=== PATIENT | female | born 1945 | race Caucasian/White ===

== ENCOUNTER 2020-10-05 10:58 | Outpatient (REF) | payer MEDICARE, MEDICAID, SELFPAY ==
--- NOTE | ~2020-10-05 | MR_ITS ---
EXAMINATION: MR LUMBAR SPINE WITHOUT CONTRAST CLINICAL INFORMATION: Spinal stenosis. COMPARISON: None. TECHNIQUE: MRI of the lumbar spine was obtained using routine sequences without contrast. FINDINGS: VERTEBRAL BODIES AND PARASPINAL STRUCTURES: Five lumbar-type vertebral bodies are identified. Focal convex rightward scoliosis of the lumbar spine is present at L4-L5 and is associated with 8 mm lateral subluxation of L3 relative to L4. 3 mm retrolisthesis of L2 relative to L3 is present. 4 mm asymmetrically prominent leftward anterolisthesis of L4 and L5 is present. Multilevel endplate discogenic marrow signal changes are present. No suspicious marrow abnormalities are noted. Scattered foci which may present hemangiomas or regions of focal fat are incidentally visualized within the thoracic and lumbar vertebral bodies. CONUS MEDULLARIS AND CAUDA EQUINA: Normal, terminating at the level of T12-L1. SPINAL LEVELS: T12-L1: Mild central stenosis. Findings arise in the setting of a mild posterior broad-based disc bulge and mild bilateral ligamentum flavum and facet hypertrophy. L1-L2: Mild central stenosis. Mild right foraminal stenosis. Findings arise secondary to a mild posterior broad-based disc bulge with right intraforaminal extension. Additionally, moderate bilateral ligamentum flavum hypertrophy is noted. L2-L3: Mild central stenosis with partial right subarticular recess narrowing and moderate right foraminal stenosis. Findings arise secondary to a mild-moderate posterior broad-based disc bulge with right parasagittal and right intraforaminal eccentricity with approximately 50% right foraminal narrowing. No direct nerve root impingement is noted. Bilateral ligamentum flavum hypertrophy is present at this level. L3-L4: Marked central stenosis. Marked left foraminal stenosis. Moderate right foraminal stenosis. Findings arise secondary to a moderate posterior broad-based disc bulge with an overlying left parasagittal disc extrusion with 7 mm inferior subligamentous extension within the left subarticular recess and left lateral recess of L4. Complete effacement of the adjacent thecal sac CSF space is present. Greater than 75% left foraminal narrowing is present secondary to the intraforaminal component of the disc bulge and adjacent moderate left facet hypertrophic changes. Additionally, marked bilateral ligamentum flavum hypertrophy is present. L4-L5: Moderate left foraminal stenosis. Mild central and mild right foraminal stenoses. Left foraminal stenosis arises secondary to a moderate left intraforaminal disc protrusion in association with moderate left facet hypertrophic changes and moderate left ligamentum flavum hypertrophy. Mild abutment upon the exiting left L4 nerve roots is noted. Concentric narrowing of the thecal sac CSF space is present, predominantly secondary to prominent bilateral ligamentum flavum hypertrophy. The intervertebral disc demonstrates approximately 75% loss of craniocaudal height. L5-S1: No significant central or foraminal stenoses. Normal intervertebral disc height. MR/MR lumbar spine wo con IMPRESSION: 1. Advanced multilevel chronic spondylosis of the lumbar spine. 2. L3-L4 marked central stenosis and left parasagittal disc extrusion with caudal extension effacing the left subarticular recess and left lateral recess with direct left L4 nerve root impingement. 3. L3-L4 marked left foraminal stenosis with left L3 nerve root impingement. 4. L4-L5 moderate left foraminal stenosis with moderate left L4 nerve root impingement. 5. Right lateral subluxation of the L4 vertebral body with focal convex rightward curvature of the lower lumbar spine.
== END 2020-10-05 10:59 | disposition home or self-care (01) ==
LOC: HO.MRI 10:58
PROVIDERS: Visit Provider Internal Medicine
DX: M48.00 Spinal stenosis, site unspecified (principal)
CPT/HCPCS: 72148

== ENCOUNTER 2020-12-10 09:00 | Outpatient (REF) | payer MEDICARE, MEDICAID, SELFPAY ==
--- NOTE | 2020-12-10 09:14 | ECG_ITS ---
Test Reason : Z13.9 Blood Pressure : / mmHG Vent. Rate : 081 BPM Atrial Rate : 081 BPM P-R Int : 256 ms QRS Dur : 074 ms QT Int : 386 ms P-R-T Axes : 100 059 057 degrees QTc Int : 448 ms Sinus rhythm with 1st degree A-V block with Premature ventricular complexes Nonspecific ST and T wave abnormality Abnormal ECG When compared with ECG of 13-FEB-2009 16:02, Premature ventricular complexes is now Present Referred By: Michael Blanchard Electronically Signed By:CADENCE BASSETT MD
[2020-12-10 10:06] LABS: Basophils Absolute Auto 0.1 X10*3/uL (0.0-0.2); Basophils Percent Auto 0.2 % (0-2); Eosinophils Absolute Auto 0.2 X10*3/uL (0.0-0.4); Eosinophils Percent Auto 0.4 % (0-4); Hematocrit 34.5 % (37-47); Hemoglobin 11.1 g/dl (12.0-16.0); Imm Gran Abs Auto 0.06 X10*3/uL (0.00-0.03); Imm Gran Pct Auto 0.2 % (0.0-0.4); Lymphocytes Percent Auto 88.1 % (20-40); MANUAL DIFF FLAG SCAN; Mean Corpuscular HGB Conc 32.2 g/dl (31.0-35.0); Mean Corpuscular Hemoglobin 29.4 pg (27.0-33.0); Mean Corpuscular Volume 91.3 fL (80-98); Mean Platelet Volume 9.6 fL (9.4-12.3); Monocytes Absolute Auto 0.3 X10*3/uL (0.1-1.2); Monocytes Percent Auto 0.8 % (2-11); Neutrophils Absolute Auto 3.8 X10*3/uL (2.0-8.3); Neutrophils Percent Auto 10.3 % (45-73); Platelet Count 142 X10*3/uL (160-400); Red Blood Count 3.78 X10*6/uL (4.20-5.50); Red Cell Distribution Width 12.8 % (11.0-16.0); SCAN SMEAR FLAG 1
[2020-12-10 10:11] LABS: Alanine Aminotransferase 12 U/L (0-31); Albumin Level 4.2 g/dL (3.5-5.0); Alkaline Phosphatase 56 U/L (39-117); Anion Gap 10 (12-20); Aspartate Amino Transferase 17 U/L (5-31); Bilirubin Total 0.6 mg/dL (0.0-1.0); Blood Urea Nitrogen 12 mg/dL (9-16); Calcium 9.5 mg/dL (8.4-10.2); Carbon Dioxide 29 mmol/L (22-29); Chloride 99 mmol/L (96-108); Cholesterol 180 mg/dL; Estimated Glomerular Filt Rate > 60; Glucose Fasting 101 mg/dL (60-99); HDL Cholesterol 72 mg/dL; LDL Cholesterol Calculated 92 mg/dl; Sodium 135 mmol/L (135-145); Total Protein 6.6 g/dL (6.5-8.0); Triglycerides 84 mg/dL
[2020-12-10 10:14] LABS: Lymphocytes Absolute Auto 32.3 X10*3/uL (1.2-4.9)
[2020-12-10 10:15] LABS: White Blood Count 36.6 X10*3/uL (4.8-10.8)
[2020-12-10 10:33] LABS: Thyroid Stimulating Hormone 1.47 uIU/mL (0.32-4.0)
[2020-12-10 10:50] LABS: SLIDE REVIEW VERIFIED
== END 2020-12-10 09:01 | disposition home or self-care (01) ==
LOC: HO.LAB 09:00
PROVIDERS: PCP Internal Medicine; Visit Provider Internal Medicine
DX: Z00.00 Encounter for general adult medical examination without abnormal findings (principal); E11.9 Type 2 diabetes mellitus without complications; E03.9 Hypothyroidism, unspecified; Z13.9 Encounter for screening, unspecified
CPT/HCPCS: 36415; 80053; 80061; 84443; 85025; 93005

== ENCOUNTER 2021-05-17 09:29 | Outpatient (REF) | payer MEDICARE, MEDICAID, SELFPAY ==
[2021-05-17 09:58] LABS: Basophils Absolute Auto 0.1 X10*3/uL (0.0-0.2); Basophils Percent Auto 0.3 % (0-2); Eosinophils Absolute Auto 0.2 X10*3/uL (0.0-0.4); Eosinophils Percent Auto 0.5 % (0-4); Hematocrit 30.5 % (37.0-47.0); Hemoglobin 9.5 g/dl (12.0-16.0); Imm Gran Abs Auto 0.06 X10*3/uL (0.00-0.03); Imm Gran Pct Auto 0.2 % (0.0-0.4); Lymphocytes Percent Auto 86.9 % (20-40); MANUAL DIFF FLAG SCAN; Mean Corpuscular HGB Conc 31.1 g/dl (31.0-35.0); Mean Corpuscular Hemoglobin 27.8 pg (27.0-33.0); Mean Corpuscular Volume 89.2 fL (80.0-98.0); Mean Platelet Volume 9.8 fL (9.4-12.3); Monocytes Absolute Auto 0.4 X10*3/uL (0.1-1.2); Monocytes Percent Auto 1.3 % (2-11); Neutrophils Absolute Auto 3.4 x10*3/uL (2.0-8.3); Neutrophils Percent Auto 10.8 % (45-73); Platelet Count 187 X10*3/uL (160-400); Red Blood Count 3.42 X10*6/uL (4.20-5.50); Red Cell Distribution Width 14.8 % (11.0-16.0); SCAN SMEAR FLAG 1
[2021-05-17 10:05] LABS: Lymphocytes Absolute Auto 27.1 X10*3/uL (1.2-4.9)
[2021-05-17 10:28] LABS: Alanine Aminotransferase 15 U/L (0-31); Albumin Level 3.9 g/dL (3.5-5.0); Alkaline Phosphatase 62 U/L (39-117); Anion Gap 12 (12-20); Aspartate Amino Transferase 20 U/L (5-31); Bilirubin Total 0.5 mg/dL (0.0-1.0); Blood Urea Nitrogen 18 mg/dL (9-16); Carbon Dioxide 26 mmol/L (22-29); Chloride 102 mmol/L (96-108); Cholesterol 190 mg/dL; Estimated Glomerular Filt Rate > 60; Glucose Fasting 97 mg/dL (60-99); HDL Cholesterol 68 mg/dL; LDL Cholesterol Calculated 108 mg/dl; Potassium 3.4 mmol/L (3.3-5.1); Sodium 137 mmol/L (135-145); Total Protein 6.6 g/dL (6.5-8.0); Triglycerides 70 mg/dL
[2021-05-17 10:48] LABS: Thyroid Stimulating Hormone 0.78 uIU/mL (0.32-4.0)
[2021-05-17 10:56] LABS: White Blood Count 31.2 X10*3/uL (4.8-10.8)
[2021-05-17 10:57] LABS: SLIDE REVIEW VERIFIED
== END 2021-05-17 09:30 | disposition home or self-care (01) ==
LOC: HO.LAB 09:29
PROVIDERS: PCP Internal Medicine; Visit Provider Internal Medicine
DX: Z00.00 Encounter for general adult medical examination without abnormal findings (principal); E03.9 Hypothyroidism, unspecified; E11.9 Type 2 diabetes mellitus without complications
CPT/HCPCS: 36415; 80053; 80061; 84443; 85025

== ENCOUNTER 2021-09-17 11:42 | Outpatient (REF) | payer MEDICARE, MEDICAID, SELFPAY ==
--- NOTE | ~2021-09-17 | XR_ITS ---
EXAMINATION: XR CHEST CLINICAL INFORMATION: Preop COMPARISON: None TECHNIQUE: 2 views of the chest were obtained. FINDINGS: The lungs are well-expanded and clear of acute process. The heart size and progress clarities normal. There is a metallic foreign body along the left neck. No gross bony abnormality seen. XR/XR chest 2V IMPRESSION: Unremarkable chest exam.
--- NOTE | 2021-09-17 11:52 | ECG_ITS ---
Test Reason : PREOP Blood Pressure : / mmHG Vent. Rate : 074 BPM Atrial Rate : 074 BPM P-R Int : 242 ms QRS Dur : 090 ms QT Int : 374 ms P-R-T Axes : 000 040 034 degrees QTc Int : 415 ms Artifact in tracing Sinus rhythm with 1st degree A-V block Otherwise normal ECG When compared with ECG of 10-DEC-2020 09:30, Premature ventricular complexes are no longer Present Referred By: Michael Blanchard Electronically Signed By:SABRINA HARRIS
[2021-09-17 12:26] LABS: Hematocrit 32.2 % (37.0-47.0); Hemoglobin 9.8 g/dl (12.0-16.0); Mean Corpuscular HGB Conc 30.4 g/dl (31.0-35.0); Mean Corpuscular Volume 95.3 fL (80.0-98.0); Mean Platelet Volume 9.1 fL (9.4-12.3); Platelet Count 153 X10*3/uL (160-400); Red Blood Count 3.38 X10*6/uL (4.20-5.50); Red Cell Distribution Width 14.9 % (11.0-16.0)
[2021-09-17 12:27] LABS: WBC ABN SCTR FOR CBC 1
[2021-09-17 12:33] LABS: INTERNATIONAL NORM RATIO 1.4 (0.9-1.1)
[2021-09-17 12:52] LABS: Anion Gap 12 (12-20); Blood Urea Nitrogen 18 mg/dL (9-16); Calcium 9.5 mg/dL (8.4-10.2); Carbon Dioxide 27 mmol/L (22-29); Chloride 99 mmol/L (96-108); Estimated Glomerular Filt Rate > 60; Glucose Random 89 mg/dL (60-115); Sodium 134 mmol/L (135-145)
[2021-09-17 13:16] LABS: Lymphocytes Percent Manual 91 % (20-40); Monocytes Percent Manual 3 % (2-11); Neutrophils Percent Manual 6 % (45-73)
[2021-09-17 13:17] LABS: RBC Morphology NOTED
[2021-09-17 13:18] LABS: Ovalocytes 1+ (5-14) /OIF; Platelet Estimate SLIGHTLY DECREASED (NORMAL); Platelet Morphology Comment NORMAL
[2021-09-17 13:40] LABS: Lymphocytes Absolute Manual 60.3 X10*3/uL (1.2-4.9); White Blood Count 66.3 X10*3/uL (4.8-10.8)
[2021-09-17 13:41] LABS: Band Neutrophils Percent 0 % (3-5)
== END 2021-09-17 11:43 | disposition home or self-care (01) ==
LOC: HO.LAB 11:42
PROVIDERS: PCP Internal Medicine; Visit Provider Internal Medicine
DX: Z01.818 Encounter for other preprocedural examination (principal); R51.9 Headache, unspecified; Z13.0 Encounter for screening for diseases of the blood and blood-forming organs and certain disorders involving the immune mechanism
CPT/HCPCS: 36415; 71046; 80048; 85007; 85027; 85610; 93005

== ENCOUNTER 2022-08-02 14:33 | Outpatient (REF) | payer MEDICARE, MEDICAID, SELFPAY ==
--- NOTE | 2022-08-02 14:41 | ECG_ITS ---
Test Reason : CHEST PAIN Blood Pressure : / mmHG Vent. Rate : 083 BPM Atrial Rate : 000 BPM P-R Int : 000 ms QRS Dur : 078 ms QT Int : 362 ms P-R-T Axes : 000 063 050 degrees QTc Int : 425 ms Accelerated Junctional rhythm Nonspecific ST abnormality Abnormal ECG When compared with ECG of 17-SEP-2021 12:10, Junctional rhythm has replaced Sinus rhythm Referred By: Michael Blanchard Electronically Signed By:
[2022-08-02 15:28] LABS: Hematocrit 30.9 % (37.0-47.0); Hemoglobin 10.3 g/dl (12.0-16.0); Mean Corpuscular HGB Conc 33.3 g/dl (31.0-35.0); Mean Corpuscular Hemoglobin 29.7 pg (27.0-33.0); Mean Platelet Volume 8.9 fL (9.4-12.3); Platelet Count 165 X10*3/uL (160-400); Red Cell Distribution Width 13.2 % (11.0-16.0)
[2022-08-02 15:46] LABS: WBC ABN SCTR FOR CBC 1
[2022-08-02 15:47] LABS: Anion Gap 12 (12-20); Blood Urea Nitrogen 9 mg/dL (9-16); Calcium 9.2 mg/dL (8.4-10.2); Carbon Dioxide 28 mmol/L (22-29); Chloride 85 mmol/L (96-108); Estimated Glomerular Filt Rate > 60; Glucose Random 102 mg/dL (60-115); Potassium 3.1 mmol/L (3.3-5.1); Sodium 122 mmol/L (135-145)
[2022-08-02 15:49] LABS: White Blood Count 63.8 X10*3/uL (4.8-10.8)
[2022-08-02 15:52] LABS: Red Blood Count 3.47 X10*6/uL (4.20-5.50)
[2022-08-02 15:58] LABS: Atypical Lymph Absolute Manual 3.2 x10*3/uL; Atypical Lymphs Percent Manual 5 % (0-6); Band Neutrophils Percent 1 % (3-5); Eosinophils Absolute Manual 0.6 X10*3/uL (0.0-0.4); Eosinophils Percent Manual 1 % (0-4); Lymphocytes Absolute Manual 54.2 X10*3/uL (1.2-4.9); Lymphocytes Percent Manual 85 % (20-40); Neutrophils Absolute Manual 5.7 X10*3/uL (2.0-8.3); Neutrophils Percent Manual 8 % (45-73)
[2022-08-02 15:59] LABS: Platelet Estimate NORMAL (NORMAL); Platelet Morphology Comment NORMAL; RBC Morphology NORMAL
== END 2022-08-02 14:34 | disposition home or self-care (01) ==
LOC: HO.LAB 14:33
PROVIDERS: PCP Internal Medicine; Visit Provider Internal Medicine
DX: R42 Dizziness and giddiness (principal)
CPT/HCPCS: 36415; 80048; 85007; 85027; 93005

== ENCOUNTER 2023-01-19 14:37 | Outpatient (AMB) | payer OTHER, SELFPAY ==
[2023-01-19 14:40] VITALS: BP 110/60; PULSE 83; O2SAT 99
--- NOTE | 2023-01-19 14:40 | A.OFFPC_ITS ---
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 Required: No Accompanied by: Self / Same As Patient Allergies amoxicillin [Amoxicillin] Allergy (Unknown, Verified 01/19/23 14:40) SORES IN MOUTH Medication List - Last Reconciled 01/20/23 by Michael Blanchard MD amlodipine 5 mg PO DAILY atorvastatin 10 mg PO BEDTIME [Bed Rails As directed] buspirone mg PO gabapentin 100 mg PO BID hydrochlorothiazide 12.5 mg PO DAILY ibuprofen 400 mg PO TID PRN imipramine HCl 50 mg PO DAILY lidocaine 5% 1 appl topical BEDTIME 15 days lidocaine 5% 1 patch topical DAILY 30 days lorazepam 0.5 mg PO BID PRN multivitamin 1 tab PO DAILY naproxen 500 mg PO BID 15 days omeprazole 20 mg PO DAILY 30 days oxycodone 5 mg PO BID PRN 7 days potassium chloride ER 10 mEq PO BID sertraline 200 mg (2 x 100 mg) PO DAILY [Transport Wheelchair As directed] [ultra light rollator ultra light rollator with seat and brakes] vitamin E 1 appl topical BID PRN walker (Ultra-Light Rollator misc) As directed Tobacco use date assessed: 01/19/23 Fall risk assessment: No Falls in past year Last assessed Fall Risk: 01/19/23 Dental Screening Dental Screen Date: 01/19/23 Did you have a dental visit in the last 12 months?: No Did you have a dental problem in the last 6 months where you did not have access to dental care?: No Was dental information given to patient?: No HPI rehab, back pain HPI Details HTN hyperlip and spinal compression fx; improving PFSH Medical History Hypertension Inguinal hernia Osteoarthritis Pre-op exam Surgical History History of back surgery Family History Father No problems noted. Mother No problems noted. Social History Housing: House Alcohol intake: never Patient Tobacco Use Status: Never used Tobacco e-Cigarette/Vaping Use: Never Used Second Hand Smoke Exposure: No service: No Current occupational status: retired Cognitive needs: No Hearing needs: No Vision needs: No Questionnaire PHQ-9 Over the last 2 weeks, how often have you been bothered by any of the following problems? 1. Little interest or pleasure in doing things: not at all 2. Feeling down, depressed, or hopeless: several days 3. Trouble falling or staying asleep, or sleeping too much: not at all 4. Feeling tired or having little energy: not at all 5. Poor appetite or overeating: not at all 6. Feeling bad about yourself - or that you are a failure or have let yourself or your family down: not at all 7. Trouble concentrating on things, such as reading the newspaper or watching television: not at all 8. Moving or speaking so slowly that other people could have noticed. Or the opposite - being so fidgety or restless that you have been moving around a lot more than usual: not at all 9. Thoughts that you would be better off or of hurting yourself in some wa y: not at all Total score: 1 Depression Screening Interpretation: Negative 75082 - PHQ-9 Billing: Yes Source: Developed by Drs. Grey Ashby, Beth Womack, Chris Caraballo and colleagues, with an educational courtney from [employer]. Thrive Questionnaire Date Thrive assessed: 01/19/23 I am a: Patient What is your living situation today?: I have a steady place to live Within the past 12 months, did the food you bought not last and you didn't have the money to get more?: Never true Within the past 12 months, did you worry whether your food would run out before you got money to buy more?: Never true Do you have trouble paying for medicines?: No Do you have trouble getting transportation to medical appointments?: No Do you have trouble paying your heating and electricity bill?: No Do you have trouble taking care of your child, family member or friend?: No Do you have trouble with day-to-day activities such as bathing, preparing meals, shopping, managing finances, etc.?: No Are you currently unemployed and looking for a job?: No Are you interested in more education?: No Currently or been in a relationship where the following occur: no concerns reported AUDIT C Alcohol Use Questionnaire (AUDIT-C) 1. How often do you have a drink containing alcohol?: Never Total Score: 0 Score Reviewed/Action Taken: Yes OLGA-7 AMB Questionnaire OLGA-7 Date OLGA - 7 assessed: 01/19/23 Feeling nervous, anxious, or on edge: 1 = Several days Not being able to stop or control worryin = Several days Worrying too much about different things: 0 = Not at all Trouble relaxin = Not at all Being so restless that it is hard to sit still: 0 = Not at all Becoming easily annoyed or irritable: 0 = Not at all Feeling afraid as if something awful might happen: 0 = Not at all Total OLGA-7 score (0-4 normal; 5-9 mild; 10-14 moderate; 15-21 severe): 2 Source: Developed by Drs. Grey Ashby, Beth Womack, Chris Caraballo and colleagues, with an educational courtney from [employer]. Review of Systems Const Denies chills, Denies headache(s) and Denies weight loss ENT Denies headache(s) Card Denies chest pain, Denies syncope, Denies irregular heart rhythm and Denies dyspnea Resp Denies chest congestion, Denies cough and Denies dyspnea GI Denies abdominal pain, Denies change in stool character, Denies nausea and Denies vomiting Musc Denies deformity and Denies joint swelling Neuro Denies Abnormal speech present, Denies syncope and Denies headache(s) Physical exam (Primary Care) Vital Signs: Last Vital Signs Pulse 83 01/19/23 14:40 BP 110/60 01/19/23 14:40 Pulse Ox 99 01/19/23 14:40 Oxygen Delivery Method Room Air 01/19/23 14:40 Tobacco/Smoking Status: Tobacco use Status Tobacco use date assessed 01/19/23 01/19/23 14:48 Patient Tobacco Use Status Never used Tobacco 01/19/23 14:48 e-Cigarette/Vaping Use Never Used 01/19/23 14:48 PHQ-9: PHQ-9 Score PHQ-9: Total score 1 01/19/23 14:48 Depression Screening Interpretation: Negative Thrive Assessment: Date of Thrive Assessment Date Thrive assessed 01/19/23 01/19/23 14:48 Currently or been in a relationship where the following occur: no concerns reported Const Other: Sitting comfortably IN WHEELCHAIR General: healthy appearing, no acute distress, alert and awake Nutritional Appearance: well nourished Orientation/consciousness: oriented to person, oriented to place and oriented to time HENMT Ears: TM's normal bilaterally General nose exam: Normal nasal mucous membranes and turbinates present Eyes Conjunctivae: conjunctivae normal Sclerae: sclerae normal Pupils: Equal, round and reactive pupils present Neck Neck: Yes no lymphadenopathy and Yes no JVD Thyroid: Thyroid normal Carotids: no bruits Resp Effort & Inspection: normal respiratory effort and not tachypneic Auscultation: no crackles, no rales, no rhonchi and no wheezes Cardio Rate: regular rate Rhythm: regular rhythm Heart sounds: no murmurs and normal S1 and S2 GI Palpation (GI): Soft to palpation, nontender, no hepatomegaly and no splenomegaly Auscultation: normal bowel sounds Skin General skin exam: no rashes or lesions noted and dry skin Neuro General: oriented to person, oriented to place and oriented to time Cranial nerves: Yes Equal, round and reactive pupils present Speech: No Abnormal speech present Gait exam (Neuro): Normal gait present Motor exam (neuro): no tremor noted Extrem Right upper extremity: full ROM Left upper extremity: full ROM Right lower extremity: full ROM; no edema Left lower extremity: full ROM; no edema Psych Mental Status: mental status grossly normal Speech and movement: Normal speech and movement present Affect: normal affect Attitude: cooperative Thought process: Normal thought process present Assessment and Plan Assessment & Plan (1) Hyperlipidemia: Code(s): E78.5 - Hyperlipidemia, unspecified Plan: stable; same rx (2) Hypertension: Code(s): I10 - Essential (primary) hypertension Plan: stable; same rx (3) Back pain: Code(s): M54.9 - Dorsalgia, unspecified Plan: stable; same rx Coding Level of Care Code Est Pt Level 4 (94288) Diagnoses Hyperlipidemia E78.5 Hypertension I10 Back pain M54.9
== END 2023-01-19 15:01 | disposition home or self-care (01) ==
PROVIDERS: PCP Internal Medicine; Visit Provider Internal Medicine
DX: E78.5 Hyperlipidemia, unspecified (principal); I10 Essential (primary) hypertension; M54.9 Dorsalgia, unspecified
CPT/HCPCS: 99214

== ENCOUNTER 2023-09-18 14:29 | Outpatient (AMB) | payer OTHER, SELFPAY ==
[2023-09-18 14:30] VITALS: BP 150/74; PULSE 50; O2SAT 94; BMI 23.6
--- NOTE | 2023-09-18 14:30 | MHC.PC.OV ---
Vital Signs 09/18/23 14:30 Height 5 ft 1 in Weight 125 lb BMI 23.6 BP 150/74 H Blood Pressure Location Lt brachial Position Sitting Pulse 50 Pulse Source Pulse Oximeter Pulse Oximetry (%) 94 Oxygen Delivery Method Room Air Intake Visit Reasons: cataract eye surgery Vp Public Relations Required: No Technical Research Scientist: Present Accompanied by: Daughter Allergies amoxicillin [Amoxicillin] Allergy (Unknown, Verified 09/18/23 14:31) SORES IN MOUTH Medication List - Last Reconciled 09/19/23 by Michael Blanchard MD amlodipine 10 mg PO DAILY atorvastatin 10 mg PO BEDTIME back brace As directed [Bed Rails As directed] buspirone mg PO gabapentin 100 mg PO BID hydrochlorothiazide 12.5 mg PO DAILY ibuprofen 400 mg PO TID PRN imipramine HCl 50 mg PO DAILY incontinence pad, liner, disp (Prevail Panty Liner pads) As directed Knee brace As directed lidocaine 5% 1 appl topical BEDTIME 15 days lidocaine 5% 1 patch topical DAILY 30 days lorazepam 0.5 mg PO BID PRN multivitamin 1 tab PO DAILY naproxen 500 mg PO BID 15 days omeprazole 20 mg PO DAILY oxycodone 5 mg PO BID PRN 7 days potassium chloride ER 10 mEq PO BID sertraline 200 mg (2 x 100 mg) PO DAILY Shower Chair As directed [Transport Wheelchair As directed] [ultra light rollator ultra light rollator with seat and brakes] vitamin E 1 appl topical BID PRN walker (Ultra-Light Rollator misc) As directed Tobacco use date assessed: 09/18/23 Fall risk assessment: No Falls in past year Last assessed Fall Risk: 09/18/23 Dental Screening Dental Screen Date: 09/18/23 Did you have a dental visit in the last 12 months?: Yes Did you have a dental problem in the last 6 months where you did not have access to dental care?: No Was dental information given to patient?: Patient has dentist HPI cataract eye surgery HPI Details scheduled for bilat cataract surgery; has HTN hyperlipidemia and chronic low back pain due to arthritis and osteoporotic compression fractures; no history of CAD PFSH Medical History Hypertension Inguinal hernia Osteoarthritis Pre-op exam Surgical History History of back surgery Family History Father No problems noted. Mother No problems noted. Social History Housing: House Alcohol intake: never Patient Tobacco Use Status: Never used Tobacco e-Cigarette/Vaping Use: Never Used Second Hand Smoke Exposure: No service: No Current occupational status: retired Cognitive needs: Yes (walker) Hearing needs: No Vision needs: No Questionnaire PHQ-9 Over the last 2 weeks, how often have you been bothered by any of the following problems? 1. Little interest or pleasure in doing things: not at all 2. Feeling down, depressed, or hopeless: several days 3. Trouble falling or staying asleep, or sleeping too much: not at all 4. Feeling tired or having little energy: not at all 5. Poor appetite or overeating: not at all 6. Feeling bad about yourself - or that you are a failure or have let yourself or your family down: not at all 7. Trouble concentrating on things, such as reading the newspaper or watching television: not at all 8. Moving or speaking so slowly that other people could have noticed. Or the opposite - being so fidgety or restless that you have been moving around a lot more than usual: not at all 9. Thoughts that you would be better off or of hurting yourself in some way: not at all Total score: 1 Depression Screening Interpretation: Negative Depression Screening Done: Yes 65390 - PHQ-9 Billing: Yes Source: Developed by Drs. Grey Ashby, Beth Womack, Chris Caraballo and colleagues, with an educational courtney from [employer]. Thrive Questionnaire Date Thrive assessed: 09/18/23 I am a: Patient What is your living situation today?: I have a steady place to live Within the past 12 months, did the food you bought not last and you didn't have the money to get more?: Never true Within the past 12 months, did you worry whether your food would run out before you got money to buy more?: Never true Do you have trouble paying for medicines?: No Do you have trouble getting transportation to medical appointments?: No Do you have trouble paying your heating and electricity bill?: No Do you have trouble taking care of your child, family member or friend?: No Do you have trouble with day-to-day activities such as bathing, preparing meals, shopping, managing finances, etc.?: No Are you currently unemployed and looking for a job?: No Are you interested in more education?: No Please select the resources that you would like help with: None THRIVE Score: 0 AUDIT C Alcohol Use Questionnaire (AUDIT-C) 1. How often do you have a drink containing alcohol?: Never Total Score: 0 Score Reviewed/Action Taken: Yes OLGA-7 AMB Questionnaire OLGA-7 Date OLGA - 7 assessed: 09/18/23 Feeling nervous, anxious, or on edge: 0 = Not at all Not being able to stop or control worryin = Not at all Worrying too much about different things: 0 = Not at all Trouble relaxin = Not at all Being so restless that it is hard to sit still: 0 = Not at all Becoming easily annoyed or irritable: 0 = Not at all Feeling afraid as if something awful might happen: 0 = Not at all Total OLGA-7 score (0-4 normal; 5-9 mild; 10-14 moderate; 15-21 severe): 0 Source: Developed by Drs. Grey Ashby, Beth Womack, Chris Caraballo and colleagues, with an educational courtney from [employer]. Review of Systems Const Denies chills, Denies fatigue, Denies headache(s) and Denies weight loss Eyes Denies change in vision, Denies diplopia and Denies eye pain ENT Denies vertigo, Denies dizziness, Denies headache(s) and Denies nasal discharge Card Denies chest pain, Denies rapid heart rate and Denies dyspnea on exertion Resp Denies chest congestion, Denies cough, Denies pain with cough and Denies dyspnea on exertion GI Denies abdominal pain, Denies hematochezia and Denies change in bowel habits Musc Denies myalgias, Denies arthralgias and Denies joint swelling Skin/Breast Denies lesions and Denies unusual bruising Neuro Denies vertigo, Denies dizziness, Denies headache(s) and Denies focal weakness Endo Denies fatigue Physical exam (Primary Care) Vital Signs: Last Vital Signs Pulse 50 09/18/23 14:30 BP 150/74 H 09/18/23 14:30 Pulse Ox 94 09/18/23 14:30 Oxygen Delivery Method Room Air 09/18/23 14:30 BMI result Body Mass Index 23.6 Tobacco/Smoking Status: Tobacco use Status Tobacco use date assessed 09/18/23 09/18/23 14:32 Patient Tobacco Use Status Never used Tobacco 09/18/23 14:32 e-Cigarette/Vaping Use Never Used 09/18/23 14:32 PHQ-9: PHQ-9 Score PHQ-9: Total score 1 09/18/23 14:44 Depression Screening Interpretation: Negative Thrive Assessment: Date of Thrive Assessment Date Thrive assessed 09/18/23 09/18/23 14:32 Const General: cooperative, healthy appearing and no acute distress Orientation/consciousness: oriented to person, oriented to place and oriented to time HENMT Head: Yes normal to inspection, Yes normocephalic and Yes atraumatic Mouth: Normal oral and palatal mucosa present and tongue normal Throat: Yes posterior oropharynx normal and Yes uvula midline Eyes General: appearance normal, both eyes and all related structures Neck Neck: Yes normal visual inspection, Yes full ROM and Yes no lymphadenopathy Thyroid: Thyroid normal Carotids: normal carotid upstroke Chest Chest palpation & inspection: normal inspection of the chest Resp Effort & Inspection: normal respiratory effort and able to speak in complete sentences Auscultation: clear to auscultation bilaterally Cardio Jugular venous distension: no JVD Palpation: normal PMI Rate: regular rate Rhythm: regular rhythm Heart sounds: S1 normal heart sound present and S2 normal heart sound present GI Inspection: Yes normal to inspection Palpation (GI): Soft to palpation and No hepatosplenomegaly present Auscultation: normal bowel sounds General: Yes no CVA tenderness Back/Spine/Pelvis Back: no CVA tenderness Skin General skin exam: no rashes or lesions noted Neuro General: oriented to person, oriented to place and oriented to time Extrem General: Yes normal to inspection and Yes full ROM Assessment and Plan Assessment & Plan (1) Pre-op exam: Code(s): Z01.818 - Encounter for other preprocedural examination Plan: low risk of cardiovascular complications; cleared for surgery (2) Osteoarthritis: Code(s): M19.90 - Unspecified osteoarthritis, unspecified site Plan: stable (3) Hyperlipidemia: Code(s): E78.5 - Hyperlipidemia, unspecified Plan: stable; same rx (4) Hypertension: Code(s): I10 - Essential (primary) hypertension Plan: stable; same rx (5) Back pain: Code(s): M54.9 - Dorsalgia, unspecified Plan: stable ; same rx (6) CLL (chronic lymphocytic leukemia): Code(s): C91.10 - Chronic lymphocytic leukemia of B-cell type not having achieved remission Plan: followed by hematology; no rx at present Coding Level of Care Code Est Pt Level 4 (97958) Diagnoses Pre-op exam Z01.818 Osteoarthritis M19.90 Hyperlipidemia E78.5 Hypertension I10 Back pain M54.9 CLL (chronic lymphocytic leukemia) C91.10
== END 2023-09-18 14:47 | disposition home or self-care (01) ==
PROVIDERS: PCP Internal Medicine; Visit Provider Internal Medicine
DX: E78.5 Hyperlipidemia, unspecified (principal); C91.10 Chronic lymphocytic leukemia of B-cell type not having achieved remission; Z01.818 Encounter for other preprocedural examination; M19.90 Unspecified osteoarthritis, unspecified site; I10 Essential (primary) hypertension; M54.9 Dorsalgia, unspecified
CPT/HCPCS: 99214

== ENCOUNTER 2024-03-07 11:05 | Outpatient (AMB) | payer OTHER, SELFPAY ==
--- NOTE | 2024-03-07 11:06 | A.OFFPC_ITS ---
Intake Visit Reasons: Medication review Inspector Subassembly Required: No Allergies amoxicillin [Amoxicillin] Allergy (Unknown, Verified 03/07/24 11:06) SORES IN MOUTH Medication List - Last Reconciled 03/08/24 by Michael Blanchard MD amlodipine 10 mg PO DAILY atorvastatin 10 mg PO BEDTIME back brace As directed [Bed Rails As directed] buspirone mg PO gabapentin 100 mg PO BID hydrochlorothiazide 12.5 mg PO DAILY ibuprofen 400 mg PO TID PRN imipramine HCl 50 mg PO DAILY incontinence pad, liner, disp (Prevail Panty Liner pads) As directed Knee brace As directed lidocaine 5% 1 appl topical BEDTIME 15 days lidocaine 5% 1 patch topical DAILY 30 days lorazepam 0.5 mg PO BID PRN multivitamin 1 tab PO DAILY naproxen 500 mg PO BID 15 days omeprazole 20 mg PO DAILY oxycodone 5 mg PO BID PRN 7 days potassium chloride ER 10 mEq PO BID sertraline 200 mg (2 x 100 mg) PO DAILY Shower Chair As directed [Transport Wheelchair As directed] [ultra light rollator ultra light rollator with seat and brakes] vitamin E 1 appl topical BID PRN walker (Ultra-Light Rollator misc) As directed Tobacco use date assessed: 09/18/23 Fall risk assessment: No Falls in past year Last assessed Fall Risk: 03/07/24 Dental Screening Dental Screen Date: 09/18/23 HPI Medication review HPI Details HTN on Rx; compliant with rx; unclear how BP is PFSH Medical History Hypertension Inguinal hernia Osteoarthritis Pre-op exam Surgical History History of back surgery Family History Father No problems noted. Mother No problems noted. Social History Housing: House Alcohol intake: never Patient Tobacco Use Status: Never used Tobacco Tobacco use type: Cigarette e-Cigarette/Vaping Use: Never Used Second Hand Smoke Exposure: No service: No Current occupational status: retired Cognitive needs: Yes (walker) Hearing needs: No Vision needs: No Questionnaire Thrive Questionnaire Date Thrive assessed: 09/18/23 OLGA-7 AMB Questionnaire OLGA-7 Date OLGA - 7 assessed: 09/18/23 Source: Developed by Drs. Grey Ashby, Beth Womack, Chris Caraballo and colleagues, with an educational courtney from [employer]. Review of Systems Const Denies chills, Denies headache(s) and Denies weight loss ENT Denies headache(s) Card Denies chest pain, Denies syncope, Denies irregular heart rhythm and Denies dyspnea Resp Denies chest congestion, Denies cough and Denies dyspnea GI Denies abdominal pain, Denies change in stool character, Denies nausea and Denies vomiting Musc Denies deformity and Denies joint swelling Neuro Denies syncope and Denies headache(s) Physical exam (Primary Care) Tobacco/Smoking Status: Tobacco use Status Tobacco use date assessed 09/18/23 03/07/24 11:07 Patient Tobacco Use Status Never used Tobacco 03/07/24 11:07 Tobacco use type Cigarette 03/07/24 11:07 e-Cigarette/Vaping Use Never Used 03/07/24 11:07 Thrive Assessment: Date of Thrive Assessment Date Thrive assessed 09/18/23 03/07/24 11:07 Telehealth Telehealth Telehealth Platform: Telephone Location of provider rendering services: practice address Location of patient: address on file Patient Identification confirmed using: Name, : Yes Telehealth method: voice only Patient verbally consented to treatment: Yes Patient verbally consented to billing insurance company: Yes Patient informed of any privacy concerns related to visit: Yes Minutes spent on Phone/Video with Pt.: 15 (telephone) Assessment and Plan Assessment & Plan (1) Hypertension: Code(s): I10 - Essential (primary) hypertension Plan: stable; same rx Coding Level of Care Code Tele Est Pt Level 3 (24579) Diagnoses Hypertension I10
== END 2024-03-07 11:56 | disposition home or self-care (01) ==
LOC: HO.HMGH 11:05
PROVIDERS: PCP Internal Medicine; Visit Provider Internal Medicine
DX: I10 Essential (primary) hypertension (principal)
CPT/HCPCS: 99442

== ENCOUNTER 2024-09-03 11:28 | Outpatient (REF) | payer OTHER, SELFPAY ==
--- OUTSIDE RECORDS SUMMARY | 2024-09-03 14:32 | XMS_ITS | Clinical Summary ---
Author Organization [facility] Address [address] [place] [address] Care Team Providers Care Sr. Payroll Processor Name Role Phone Michael Blanchard MD Primary Care Provider [phone] Allergies No known active allergies Medications Medication Sig Dispensed Refills Start Date End Date Status sertraline (ZOLOFT) 100 MG tablet Take 1 tablet (100 mg total) by mouth 2 (two) times a day. 0 Active atorvastatin (LIPITOR) tablet 10 mg Take 1 tablet (10 mg total) by mouth daily. 0 Active amLODIPine (NORVASC) tablet 10 mg Take 0.5 tablets (5 mg total) by mouth daily. 0 Active hydroCHLOROthiazide (MICROZIDE) 12.5 MG capsule Take 1 capsule (12.5 mg total) by mouth daily. 0 Active imipramine (TOFRANIL) 50 MG tablet Take 1 tablet (50 mg total) by mouth 2 (two) times a day. 0 Active potassium chloride ER (K-DUR,KLOR-CON) tablet 10 mEq Take 1 tablet (10 mEq total) by mouth 2 (two) times a day. 0 Active LORazepam (ATIVAN) 0.5 MG tablet Take 1 tablet (0.5 mg total) by mouth 2 (two) times a day. 0 Active busPIRone (BUSPAR) 10 MG tablet Take 1 tablet (10 mg total) by mouth 2 (two) times a day. 0 Active Active Problems Problem Noted Date Diagnosed Date CLL (chronic lymphocytic leukemia) 12/01/2017 Anemia 12/01/2017 Anxiety and depression 12/01/2017 Weight loss 12/01/2017 Social History Tobacco Use Types Packs/Day Years Used Date Smoking Tobacco: Never Assessed Sex and Gender Information Value Date Recorded Sex Assigned at Not on file Gender Identity Not on file Sexual Orientation Not on file Job Start Date Occupation Industry Not on file Not on file Not on file Last Filed Vital Signs Vital Sign Reading Time Taken Comments Blood Pressure 145/56 04/20/2022 2:07 PM EDT Pulse 74 04/20/2022 2:07 PM EDT Temperature 36.9 ??C (98.4 ??F) 04/20/2022 2:07 PM ED T Respiratory Rate - - Oxygen Saturation 100% 04/20/2022 2:07 PM EDT Inhaled Oxygen Concentration - - Weight 61.6 kg (135 lb 12.8 oz) 04/20/2022 2:07 PM EDT Height 147.3 cm (4' 10 ) 12/19/2018 10: 25 AM EDT Body Mass Index 28.38 12/19/2018 10:25 AM EDT Plan of Treatment Health Maintenance Due Date Last Done Comments Hepatitis C Screening 1945 Pneumococcal Vaccine (1 of 2 - PCV) 1951 Depression Screening 1957 Preventative Health Evaluation 1963 DTap / Tdap / Td (1 - Tdap) 01/02/1964 Shingrix-Zoster Vaccine (1 of 2) 01/02/1964 Fall Risk Assessment 2010 Osteoporosis Screening (DEXA Scan) 2010 RSV Adult > 60+ Yrs or Pregn ant (1 - 1-dose 75+ series) 01/02/2020 COVID-19 Vaccine (2 - Pfizer risk series) 04/08/2021 03/18/2021 Influenza Vaccine (#1) 2024 Hepatitis B Vaccines Aged Out No long er eligible based on patient's age to complete this topic RSV Ped < 20 months Aged Out No longe r eligible based on patient's age to complete this topic Care Teams Sr. Payroll Processor Relationship Specialty Start Date End Date Michael Blanchard MD [address] [place] [address] Dr Blanco [address] [place] [id number] PCP - General Internal Medicine 12/19/18
--- OUTSIDE RECORDS SUMMARY | 2024-09-03 14:32 | XMS_ITS | Data Portability ---
Author Organization [facility] [place] Address [address] [place] [address] Care Team Providers Care Medical Reviewer Name Role Phone HIM [facility] OTHER Assessment No assessment recorded. Plan of Treatment Reminders Order Date Submit Date Provider Last Modified By Organization Details Last Modified Time Details Appointments None record ed. Lab None record ed. Referral None record ed. Procedures None record ed. Surgeries None record ed. Imaging None record ed. Medication Orders None record ed. Patient TargetsNo targets recorded. Patient InstructionsNo instructions recorded. Reason for Referral None Reported. Medical Equipment None Reported. Allergies Allergen ID Allergen Name Allergen Category Reaction Reaction Severity Criticality Documentation Date Start Date Code Code System Note Provider Name and Address Organization Details Recorded Time 88810 amoxicill in medicatio n Not available Not available Not available 09/03/2024 723 RxNorm Not Available [facility] - production 13:48:56 Medications Name Sig Start Date Stop Date Status Note LastModified by Organization Details LastModified Time buspirone 5 mg tablet TAKE 1 TABLET BY MOUTH TWICE A DAY active Not Available Not Available No t Available imipramine 50 mg tablet TAKE 1 TABLET BY MOUTH EVERY DAY active Not Available Not Available No t Available atorvastatin 10 mg tablet TAKE 1 TABLET BY MOUTH AT BEDTIME active Not Available Not Available No t Available sertraline 100 mg tablet TAKE 2 TABLETS BY MOUTH EVERY DAY active Not Available Not Available No t Available amlodipine 5 mg tablet TAKE 1 TABLET BY MOUTH EVERY DAY active Not Available Not Available No t Available lorazepam 0.5 mg tablet TAKE 1 TABLET BY MOUTH TWICE A DAY NEEDED FOR ANXIETY active Not Available Not Available No t Available amlodipine 10 mg tablet active Not Available Not Available No t Available buspirone 10 mg tablet TAKE 1 TABLET BY MOUTH TWICE A DAY active Not Available Not Available No t Available hydrochlorothia zide 12.5 mg capsule TAKE 1 CAPSULE BY MOUTH DAILY active Not Available Not Available No t Available omeprazole 20 mg capsule,delayed release TAKE 1 CAPSULE BY MOUTH EVERY DAY active Not Available Not Available No t Available gabapentin 100 mg capsule 100 MG ORALLY 2 TIMES A DAY active Not Available Not Available No t Available lorazepam 1 mg tablet TAKE 1 TABLET BY MOUTH TWICE A DAY NEEDED FOR ANXIETY active Not Available Not Available No t Available naproxen 500 mg tablet TAKE 1 TABLET BY MOUTH 2 TIMES A DAY FOR 15 DAYS. TAKE AFTER A MEAL active Not Available Not Available No t Available oxycodone 5 mg tablet TAKE 1 TABLET BY MOUTH TWICE A DAY NEEDED FOR PAIN FOR 7 DAYS active Not Available Not Available No t Available Daily-Werner (with folic acid) 400 mcg tablet TAKE 1 TABLET BY MOUTH EVERY DAY active Not Available Not Available No t Available Vitals Date Recorded Body temperature Respiratory rate Heart rate Oxygen saturation Oxygen saturation in Arterial blood by Pulse oximetry Systolic blood pressure Diastolic blood pressure Provider Name and Address Organization Details Last Updated DateTime 4 98 [degF] 18 /min 99 /min 97 % 97 % 198 mm[Hg] 89 mm[Hg] Not Available [facility] 4 18:39:47 Social History None recorded. Functional Status None recorded. Mental Status None recorded. Family History Nothing Reported. Medical History No medical history recorded. Gynecological HistoryNo gynecological history recorded. Obstetrics History GPAL:G 0 P 0 0 0 0 Past Encounters Encounter ID Performer Location Encounter Start Date Encounter Closed Date Diagnosis/Indication Diagnosis SNOMED-CT Code Diagnosis ICD10 Code Diagnosis Note [id number] SAPPHIRE HAWTHORNE MD [facility] [address] [place] [phone] 08/05/2023 18:39:45 08/06/2023 13:35:13 Dizziness [id number] R42 Evaluation in the field was performed by my research computing specialist colleague, as noted above, I provided real-time direction and supervisio n for this visit. The evaluation revealed 78 yr old female with hx of HTN. Her Amlodipine was increased from 5 mg to 10 mg by her VNA yesterday . Pt with nausea, 1 episode of vomiting and dizziness , when moving head . Unable to move or eat. When seen by us, BP 198/89. Pt extremely dizzy and unable to sit up for orthostati c VS Impression :Presentat ion with acute dizziness, nausea concerning for cerebellar CVA.DD include symptomati c hypertensi on urgency that needs to be treated in a monitored setting Plan:Plan to sent pt in the ED at [facility] for further management of her dizziness , possible brain MRI and manage her BP . Primary care, consider__ _ Dispositio n: [facility] ED. expect called. Health Concerns Section Related Observation LastModified by Organization Michaelle ls LastModified Time None Recorded Concern Status LastModified by Organization Details LastModified Time None Recorded Advance Directives Directive None Recorded Payers Encounter Date Sequence Insurance Name Policy Number Policy Noe Covered Member ID Noe Member ID Guarantor Name 08/05/[address] [facility] - DOS ON OR AFTER 2022 - DUAL ELIGIBLE - [facility] [employer] AND ONE [employer] (MEDICARE REPLACEMENT/ADV ANTAGE - HMO) Rachnakinjal Ethan [id number] Geoffrey Long Notes Date Note Type Note Provider Name and Address Organization Details Recorded Time 08/05/2023 text/html [facility] Nurse Triage Notes (Dulce Arriaza): Chief Complaints: Hypertension, Syncope/Dizziness/ Lightheadedness PMH: Hypertension, Other Allergies: Unknown Comments: Verified identity / address/ Member is a 78 yr old female. Member has not been feeling well. Member BP was elevated yesterday , VNA increased her medication from 5mg to 10 mg amlodipine . Member had an episode of vomiting and dizziness , when moving head . Member is unable to eat and drink. BP check 172/73 > sat down 163/80> now 150's. unsure what is normal 130-150's. Member was able to eat this am but then got dizzy after . MEmber is not diabetic Member has a hx depression / back pain > gabepentin MEmber is aware of what we can assist with during a visit and may require member to go to the ER for a work up .................. .................. .................. .................. .................. .................. .................. ............... Director Wholesale Note From Arvind Jessica: Community Director Wholesale Graeme [facility] dispatched to a red for a 78 yof C/O dizziness. Upon arrival, the pt was sitting in her living room, awake and alert, YEN X4. She reported that she had some dizziness the day before yesterday with nausea, and that her VNA increased her amlodipine from 5 mg to 10 mg starting that day. She stated the day prior she had no S/S, but that day at noon she had sudden onset dizziness, and nausea/vomiting following that. She denied any WATSON, vision changes, and family denied confusion or slurred speech. No facial droop, one sided weakness, or arm drift. She was not anticoagulated. [facility] consulted; pt was informed that she needed to call 911 and R/O cerebellar CVA in the ED. Pt and family agreed, 911 was called, Landy STACI arrived and transported her to [facility] ED. .................. .................. .................. .................. .................. .................. .................. ............... Disposition: Caterina HAWTHORNE MD [address] [facility],[address], [place], [phone], [facility] 08/05/2023 23:15:46 OBGyn Episode No OBEpisode recorded.
== END 2024-09-03 11:29 | disposition home or self-care (01) ==
LOC: HO.LAB 11:28
PROVIDERS: PCP Internal Medicine; Visit Provider Internal Medicine
DX: Z13.89 Encounter for screening for other disorder (principal)

== ENCOUNTER 2024-09-16 09:34 | Outpatient (AMB) | payer OTHER, SELFPAY ==
[2024-09-16 09:48] VITALS: BP 118/68; PULSE 63; O2SAT 98; BMI 22.7
--- NOTE | 2024-09-16 09:48 | A.OFFPC_ITS ---
Vital Signs 09/16/24 09:48 Height 5 ft Weight 116 lb BMI 22.7 BP 118/68 Blood Pressure Location Lt brachial Position Sitting Pulse 63 Pulse Source Pulse Oximeter Pulse Oximetry (%) 98 Oxygen Delivery Method Room Air Intake Visit Reasons: leg pains Allergies amoxicillin [Amoxicillin] Allergy (Unknown, Verified 09/16/24 09:48) SORES IN MOUTH Medication List - Last Reconciled 09/16/24 by Jesus Martinez MD amlodipine 10 mg PO DAILY atorvastatin 10 mg PO BEDTIME back brace As directed [Bed Rails As directed] buspirone mg PO gabapentin 100 mg PO BID hydrochlorothiazide 12.5 mg PO DAILY imipramine HCl 50 mg PO DAILY incontinence pad, liner, disp (Prevail Panty Liner pads) As directed Knee brace As directed lidocaine 5% 1 patch topical DAILY 30 days lorazepam 0.5 mg PO BID PRN multivitamin 1 tab PO DAILY omeprazole 20 mg PO DAILY sertraline 200 mg (2 x 100 mg) PO DAILY Shower Chair As directed [Transport Wheelchair As directed] [ultra light rollator ultra light rollator with seat and brakes] walker (Ultra-Light Rollator misc) As directed Tobacco use date assessed: 09/16/24 Fall risk assessment: No Falls in past year Last assessed Fall Risk: 09/16/24 Dental Screening Dental Screen Date: 09/16/24 Did you have a dental visit in the last 12 months?: No Did you have a dental problem in the last 6 months where you did not have access to dental care?: No Was dental information given to patient?: Patient has dentist [facility] Medical History Hypertension Inguinal hernia Osteoarthritis Pre-op exam Surgical History History of back surgery Family History Father No problems noted. Mother No problems noted. Social History Housing: House Alcohol intake: never Patient Tobacco Use Status: Never used Tobacco Tobacco use type: Cigarette e-Cigarette/Vaping Use: Never Used Second Hand Smoke Exposure: No service: No Current occupational status: retired Cognitive needs: Yes (walker) Hearing needs: No Vision needs: No Questionnaire PHQ-9 Over the last 2 weeks, how often have you been bothered by any of the following problems? 1. Little interest or pleasure in doing things: not at all 2. Feeling down, depressed, or hopeless: several days 3. Trouble falling or staying asleep, or sleeping too much: not at all 4. Feeling tired or having little energy: not at all 5. Poor appetite or overeating: not at all 6. Feeling bad about yourself - or that you are a failure or have let yourself or your family down: not at all 7. Trouble concentrating on things, such as reading the newspaper or watching television: not at all 8. Moving or speaking so slowly that other people could have noticed. Or the opposite - being so fidgety or restless that you have been moving around a lot more than usual: not at all 9. Thoughts that you would be better off or of hurting yourself in some way: not at all Total score: 1 Depression Screening Interpretation: Negative Depression Screening Done: Yes 45753 - PHQ-9 Billing: Yes Source: Developed by Drs. Grey Ashby, Beth Womack, Chris Caraballo and colleagues, with an educational courtney from [employer]. Thrive Questionnaire Date Thrive assessed: 09/16/24 I am a: Patient What is your living situation today?: I have a steady place to live Within the past 12 months, did the food you bought not last and you didn't have the money to get more?: Never true Within the past 12 months, did you worry whether your food would run out before you got money to buy more?: Never true Do you have trouble paying for medicines?: No Do you have trouble getting transportation to medical appointments?: No Do you have trouble paying your heating and electricity bill?: No Do you have trouble taking care of your child, family member or friend?: No Do you have trouble with day-to-day activities such as bathing, preparing meals, shopping, managing finances, etc.?: No Are you currently unemployed and looking for a job?: No Are you interested in more education?: No Currently or been in a relationship where the following occur: No concerns reported THRIVE Score: 0 AUDIT C Alcohol Use Questionnaire (AUDIT-C) 1. How often do you have a drink containing alcohol?: Never Total Score: 0 Score Reviewed/Action Taken: Yes OLGA-7 AMB Questionnaire OLGA-7 Date OLGA - 7 assessed: 09/16/24 Feeling nervous, anxious, or on edge: 0 = Not at all Not being able to stop or control worryin = Not at all Worrying too much about different things: 0 = Not at all Trouble relaxin = Not at all Being so restless that it is hard to sit still: 0 = Not at all Becoming easily annoyed or irritable: 0 = Not at all Feeling afraid as if something awful might happen: 0 = Not at all Total OLGA-7 score (0-4 normal; 5-9 mild; 10-14 moderate; 15-21 severe): 0 Source: Developed by Drs. Grey Ashby, Beth Womack, Chris Caraballo and colleagues, with an educational courtney from [employer]. Physical exam (Primary Care) Vital Signs: Last Vital Signs Pulse 63 09/16/24 09:48 BP 118/68 09/16/24 09:48 Pulse Ox 98 09/16/24 09:48 Oxygen Delivery Method Room Air 09/16/24 09:48 BMI result Body Mass Index 22.7 Tobacco/Smoking Status: Tobacco use Status Tobacco use date assessed 09/16/24 09/16/24 09:49 Patient Tobacco Use Status Never used Tobacco 09/16/24 09:49 Tobacco use type Cigarette 09/16/24 09:49 e-Cigarette/Vaping Use Never Used 09/16/24 09:49 PHQ-9: PHQ-9 Score PHQ-9: Total score 1 09/16/24 10:17 Depression Screening Interpretation: Negative Thrive Assessment: Date of Thrive Assessment Date Thrive assessed 09/16/24 09/16/24 09:49 Currently or been in a relationship where the following occur: No concerns reported Const General: alert; No acute distress Eyes Conjunctivae: conjunctivae normal Resp Auscultation: clear to auscultation bilaterally Cardio Rate: regular rate Rhythm: regular rhythm GI Inspection: Yes normal to inspection Extrem General: Yes normal to inspection and No edema Coding Level of Care Code Est Pt Level 4 (05500) Complex EM visit Add On G2211 Diagnoses Urinary retention R33.9 CLL (chronic lymphocytic leukemia) C91.10 Spinal stenosis of lumbar region with neurogenic claudication M48.062 Neurogenic claudication status: with neurogenic claudication Hypertension I10 Hyperlipidemia E78.5 Hyponatremia E87.1 Hypokalemia E87.6 Additional Codes PHQ-9 - 28013 - PHQ-9 Billing: Yes ([id number]) Assessment & Plan Assessment & Plan (1) Urinary retention: Code(s): R33.9 - Retention of urine, unspecified Category: Medical Plan: Patient was recently in the emergency room and had the Short catheter placed advised urology (2) CLL (chronic lymphocytic leukemia): Code(s): C91.10 - Chronic lymphocytic leukemia of B-cell type not having achieved remission Category: Medical Plan: Patient is being followed up by hematology oncology (3) Lumbar canal stenosis: Code(s): M48.061 - Spinal stenosis, lumbar region without neurogenic claudication Category: Medical Qualifiers: Neurogenic claudication status: with neurogenic claudication Qualified Code(s): M48.062 - Spinal stenosis, lumbar region with neurogenic claudication Plan: Patient has seen pain management and has had injections recently. (4) Hypertension: Code(s): I10 - Essential (primary) hypertension Category: Medical Plan: Continue with blood pressure medication. Decrease salt intake and exercise on amlodipine 10 mg once a day hydrochlorothiazide 12.5 mg once a day (5) Hyperlipidemia: Code(s): E78.5 - Hyperlipidemia, unspecified Category: Medical Plan: Avoid fried foods, chicken skin, eggs, butter margarine, pastries and meat. Be it pork or beef they have a lot of cholesterol patient on atorvastatin but I do not see any recent blood work (6) Hyponatremia: Code(s): E87.1 - Hypo-osmolality and hyponatremia Category: Medical Plan: This needs to be repeated (7) Hypokalemia: Code(s): E87.6 - Hypokalemia Category: Medical Plan: This needs to be repeated Plan History of Present Illness The patient is a 79-year-old female presenting with urinary symptoms related to urinary retention and management of back pain. She has a notable history of essential hypertension and chronic conditions, including chronic lymphocytic leukemia, hypercholesterolemia, gastroesophageal reflux disease, depression with cognitive decline, and lumbar canal stenosis. During a recent emergency visit fo r urinary retention, she underwent Short catheterization, which caused discomfort. Further evaluation determined uterine prolapse relevant to her urinary issues, with plans for corrective surgery in October. Additionally, the patient has a background of significant back pain related to lumbar post-laminectomy syndrome, lumbar radiculopathy, and degeneration of the lumbar intervertebral disc, documented by MRI findings of multilevel degenerative changes and nerve root impingement. An attempted pessary placement for her prolapsed uterus was unsuccessful, prompting surgical evaluation. Recent health assessments highlighted her hematological condition, anemia, and electrolyte disturbances, reminding of the potential need for further evaluation and continuous monitoring. Health Maintenance - Patient has a history of hypertension and hypercholesterolemia management with amlodipine and atorvastatin, respectively. Last cholesterol test and liver function test in 2020. - Blood pressure and cholesterol levels require immediate re-evaluation given the use of specific medications. - Dietary adjustments advised to manage electrolyte imbalances, specifically limiting excessive water intake to address hyponatremia. - Lifestyle recommendations include increased physical activity, particularly walking several times a day, to support general health and cardiac function in preparation for elective surgery. - Advisement on a balanced fluid intake to prevent further episodes of severe hyponatremia, considering prior incidence due to excessive water consumption. Social History - The patient is not extensively physically active but does engage in household activities. There's an encouragement towards more regular walking exercises. - Lives near medical facilities and consistently involves family in health- related activities and appointments. - There are existing social support structures, as seen with family assistance in medical visits and arranging medical care. Review of Systems - Genitourinary: Reports ongoing issues with urinary retention and past catheterization. - Musculoskeletal: Reports chronic back pain related to previous spinal fractures. - Cardiovascular: Denies significant leg swelling associated with current medications. - Neurological: Reports cognitive decline associated with a diagnosis of depression. Physical Exam Results Labs: - Previous anemia with hemoglobin level of 8.9 and hematocrit of 27.3. - Historical hyponatremia with sodium of 122 (July). - Recent urinalysis indicated blood in the urine. Plan Focus remains on managing electrolyte imbalances, specifically addressing hyponatremia through dietary adjustments to reduce consumption of excessive fluids. Surgical intervention is planned for the prolapsed uterus, with pre- operative assessments being arranged. Pain management continues to be a priority with the appraisal of current pharmacological treatments and arrangements for lumbar epidural injections as needed. Blood pressure and cholesterol evaluations are required, with immediate testing and adjustments in medical treatment as necessary. There is a coordination in place with her product marketing director-oncologist for CLL management. Encouraging an increase in physical activity is a crucial part of the pre-surgical preparation plan to confirm her heart can sustain upcoming procedures. Patient was informed and verbally consented to the use of an ambient scribe for clinic note documentation during this visit. Discussion Notes During this visit, I reviewed the patient's concerns regarding urinary retention and chronic back pain. The patient and I discussed the planned surgical intervention for her uterine prolapse, emphasizing pre-operative preparation, which includes increasing physical activity and having necessary tests like EKG completed. We discussed the management plans for electrolyte imbalances, stressing the importance of moderating fluid intake as she prepares for surgery. Also discussed during the consultation were her current pharmacological treatments, particularly those addressing blood pressure and cholesterol, and the implications of her CLL, with emphasis on maintaining regular communication with her hematology-oncology providers. The importance of follow-up appointments, lab tests, and continuous monitoring of her additional health parameters was ensured. Patient Instructions - Moderate water intake to prevent further sodium imbalances. - Increase physical activity by walking several times daily. - Follow up promptly for pre-operative assessments and lab tests. - Attend scheduled surgery consultation in October. - Monitor symptoms of urinary retention and back pain and report if they worsen. - Ensure pharmacological treatments are taken as prescribed and consult if experiencing new side effects. - Coordination with specialists is essential, including forwarding any new medical information. Orders: Orders Lipid Panel Today E78.00 - Pure hypercholesterolemia, unspecified, E87.6 - Hypokalemia Vitamin B12 and Folate Today E87.6 - Hypokalemia Magnesium Today E87.6 - Hypokalemia Comprehensive Met. Panel Today E87.6 - Hypokalemia Complete Blood Count Auto Diff Today E87.6 - Hypokalemia Free T4 (Free Thyroxine) Today E87.6 - Hypokalemia Thyroid Stimulating Hormone Today E87.6 - Hypokalemia Vitamin D 25-OH Total Today E87.6 - Hypokalemia UA CC w/rflx Micro + Cult Today E87.6 - Hypokalemia, R30.0 - Dysuria ECG 12 lead EKG Today I10 - Essential (primary) hypertension Medications: Refilled lidocaine 5% leave on most painful area for up to 12 hrs 1 patch topical DAILY 30 ea 0RF 30 days M48.062 - Spinal stenosis, lumbar region with neurogenic claudication
--- OUTSIDE RECORDS SUMMARY | 2024-09-16 10:25 | XMS_ITS | Clinical Summary ---
Author Organization [facility] Address [address] [place] [address] Care Team Providers Care Nurse'S Aides Teacher Name Role Phone Michael Blanchard MD Primary Care Provider [phone] Allergies No known active allergies Medications Medication [...] age to complete this topic Care Teams Nurse'S Aides Teacher Relationship Specialty Start Date End Date Michael Blanchard MD [address] [place] [address] Dr Blanco [address] [place] [id number] PCP - General Internal Medicine 12/19/18
--- OUTSIDE RECORDS SUMMARY | 2024-09-16 10:25 | XMS_ITS | Data Portability ---
Author Organization [employer] Address [address] [place] [address] Care Team Providers Care Packer Denture Name Role Phone HIM VANNESSA OTHER SUSANASHARMAINE WHITE OTHER SACHIN ARTIS OTHER Assessment Encounter Date Assessment Date Assessment LastModified by Organization Details LastModified Time 09/03/2024 09/03/2024 I provided real -time medical direction via phone for this encounter, and was available for additional phone based assistance as needed. I have reviewed and agree with the Assessment and Plan as documented by the Procedures Analyst. We discussed the diagnostic uncertainty of home visits and the risk associated with this. In this case the patient, daughter and I felt this to be an acceptable and reasonable amount of risk given the benefit of avoiding an ED visit. The patient and her daughter Amal given the opportunity to ask questions. Advised if develops CP/severe SOB/turning blue/severe abd or flank pain/uncontrolle d n/v/d or / AMS/ syncope/ hi fever to call 911- verbalized understanding of instructions to me [email or web address] Not available 09/03/2024 18:24:36 09/05/2024 09/05/2024 Impression: 79yo/f referred for re-visit after visit 2 days ago for acute urinary retention. Patient was seen at that time, has pmhx of CLL, found to have acute urinary retention. Baez catheter placed and has been tolerating well, labs at that time showed anemia with hgb 9.7 and hyponatremia of 127. Recommended to have recheck with PMD and Urology, has PCP scheduled for 09/09, still awaiting urology followup. For medic in home patient is awake, alert, in no distress. No new complaints today. Tolerating baez catheter, urine culture from that day was unremarkable. On medic assessment patient is awake, alert, in no distress. Vitals are WNL. Physical exam is unremarkable. Patient is at her mental status baseline, taking PO appropriately. They deny other ROS at this time. Plan: Patient underwent re-visit today and she is tolerating baez catheter without issue, tolerating PO, no new complaints or physical exam abnormalities. Vitals are WNL. Repeat sodium and hemoglobin are slightly improved, hgb 9.9 and Na 129. Cr and other electrolytes are re-assuring. Patient and family feel comfortable continuing to monitor at home, advised electrolyte containing solutions like sports drinks and pedialyte, and patient will require PCP and Urology followup as they are aware will be needed for definitive diagnosis and further exploration of urinary retention. Instructed to reach out immediately with any acute worsening or change in symptoms which they understand. Discharged from visit with mandatory timed followup and strict return instructions reviewed. Primary care, consider 48 hour followup and Urology referral for evaluation of acute urinary retention. Disposition: We discussed the diagnostic uncertainty of home visits and the risk associated with this. In this case, the patient and I felt this to be an acceptable and reasonable amount of risk given the benefit of avoiding an ED visit. We discussed the need to seek care urgently/emergen tly in the setting of any new or worsening serious symptoms [email or web address] Not available 09/05/2024 15:19:48 Plan of Treatment Reminders Order Date Submit Date Provider Last Modified By Organization Details Last Modified Time Details Appointments None recorded. Lab BMP, serum or plasma 2024 025 [facility], [address] [place] [address], [phone], 5 17:04:03 hemoglobin + hematocrit, blood 2024 025 [facility], [address] [place] [address], [id number], 5 17:04:25 BMP, serum or plasma 2024 025 [facility], [address] [place] [address], [phone], 5 17:27:20 culture, urine 2024 025 [place] [facility] (Centralized Electronic Ordering - All Locations), Patient Can Go To The Location Of Their Choice, [id number] 06:07:47 urinalysis, dipstick 2024 025 [facility], [address] [place] [address], [place], [phone], 08:17:32 Referral None recorded. Procedures catheteriza tijennifer franceey (PROC) 2024 025 [email or web address] 0 Not available 18:30:24 Surgeries None recorded. Imaging None recorded. Medication Orders None recorded. Patient TargetsNo targets recorded. Patient InstructionsNo instructions recorded. Reason for Referral None Reported. Results Created Date Observation Date Name Description Value Unit Range Abnormal Flag Note LastModifiedBy Organization Detail LastModifiedTime 09/04/1909/05/2024 URINE CULTU RE, ROUTI NE urine culture, routine Final report Not Available [facility] ([facility]) [address] [place], [address], 09/05/2024 06:07:46 09/04/1909/05/2024 URINE CULTU RE, ROUTI NE result 1 No growth Not Available [facility] ([facility]) [address] [place], [address], 09/05/2024 06:07:46 Result Notes None recorded. Medical Equipment None Reported. Allergies Allergen ID Allergen Name Allergen Category Reaction Reaction Severity Criticality Documentation Date Start Date Code Code System Note Provider Name and Address Organization Details Recorded Time 50216 amoxicill in medicatio n Not available Not [...] % 198 mm[Hg] 89 mm[Hg] Not Available [employer] 4 18:39:47 Date Recorded Oxygen saturation Oxygen saturation in Arterial blood by Pulse oximetry Body temperature Heart rate Respiratory rate Systolic blood pressure Diastolic blood pressure Provider Name and Address Organization Details Last Updated DateTime 5 99 % 99 % 98.5 [degF] 80 /min 18 /min 158 mm[Hg] 71 mm[Hg] Not Available [email or web address] [employer] [facility] [employer] 5 15:23:02 Date Recorded Body temperature Respiratory rate Heart rate Oxygen saturation Oxygen saturation in Arterial blood by Pulse oximetry Systolic blood pressure Diastolic blood pressure Provider Name and Address Organization Details Last Updated DateTime 5 98.3 [degF] 16 /min 62 /min 95 % 95 % 128 mm[Hg] 58 mm[Hg] Not Available [employer]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 Functional Status None recorded. Mental Status None recorded. Family History Nothing Reported. Medical History No medical history recorded. Gynecological HistoryNo gynecological history recorded. Obstetrics History GPAL:G 0 P 0 0 0 0 Past Encounters Encounter ID Performer Location Encounter Start Date Encounter Closed Date Diagnosis/Indication Diagnosis SNOMED-CT Code Diagnosis ICD10 Code Diagnosis Note [id number] SAPPHIRE HAWTHORNE MD [facility] [address] [place] [phone] 08/05/2023 18:39:45 08/06/2023 13:35:13 Dizziness [id number] R42 Evaluation in the field was performed by my ball winder colleague, as noted above, I provided real-time [...] to sent pt in the ED at [facility] for further management of her dizziness , possible brain MRI and manage her BP . Primary care, consider__ _ Dispositio n: [facility] ED. expect called. [id number] Katerine Urena MD [facility] - [facility] [address] [place] [phone] 09/03/2024 15:22:59 09/03/2024 19:09:53 Urinary symptoms 371768270 R39.9 spoke with patient and her daughter- need to r/o catrachito/ cath bladder- expl procedure to r/o retention they are agreeable with plan NO CATRACHITO- patient is hyponatrem ic( NA 127 with nl BUN/cr). and anemic- I have no prior labs- patient has no My Chart- apparently has CLL, so anemia to be expected-? if hyponatrem ia secondary to excessive water ingestion- has low specific gravity as well-advis ed to limit water to a few cups a day and drink more cranberry and apple juice. Patient is not a diabetic. Acute urinary retention- note sent to [facility]: pat was in acute urinary retention ( 1L)- we left baez in/medic attached the Baez catheter with some slack to the patient's leg and instructed patient and daughter how to care for the Baez-left a urinal to decant the Baez bag into and instructed to monitor output and keep a record of it before emptying the urine into the toilet. Patient does have a urologist who apparently called the house back when the daughter without. I advised the daughter to reach out to them tomorrow she needs to be seen as soon as possible/a s well as by PCP. Advised leaving the Baez in her she would go right back into retention likely which would necessitat e a trip to the ER during the night, which the patient and her daughter would like to avoid. UC sent scant leuks/ no nitrates/s cant blood not overtly infected. Advised would call if UC was positive and could then place her on antibiotic s. They were agreeable with the plan Note sent to [facility] to reach out to healthcare science specialist-re garding she needs to see her urologist and pcp TRICIA if they could assist with that pls. Her daughter TEJAS will also call PCP and urology tomorrow. Can CRC pls call to check on patient tomorrow- has never had a baez/ if pcp cannot see within in 48 hours will need a revisit and repeat labs. [id number] Derek Velasquez MD [facility] - [facility] [address] [place] [phone] 09/05/2024 14:59:22 09/05/2024 17:44:36 Hyponatremia [id number] E87.1 Health Concerns Section Related Observation LastModified by Organization Detai ls LastModified Time None Recorded Concern Status LastModified by Organization Details LastModified Time None Recorded Advance Directives Directive None Recorded Payers Encounter Date Sequence Insurance Name Policy Number Policy Noe Covered Member ID Noe Member ID Guarantor Name 08/05/2023 1 [facility] - DOS ON OR AFTER 2022 - DUAL ELIGIBLE - CORRECTION OPTIONS AND ONE CARE (MEDICARE REPLACEMENT/ADV ANTAGE - HMO) Geoffrey Long [id number] Geoffrey Long 09/03/2024 1 [facility] - DOS ON OR AFTER 2022 - DUAL ELIGIBLE - CORRECTION OPTIONS AND ONE CARE (MEDICARE REPLACEMENT/ADV ANTAGE - HMO) Geoffrey Long [id number] Geoffrey Long 09/05/2024 1 [facility] - DOS ON OR AFTER 2022 - DUAL ELIGIBLE - CORRECTION OPTIONS AND ONE CARE (MEDICARE REPLACEMENT/ADV ANTAGE - HMO) Geoffrey Long [id number] Geoffrey Long Notes Date Note Type Note Provider Name and Address Organization Details Recorded Time 08/05/2023 text/html [facility] Nurse Triage Notes (Dulce Arriaza): Chief Complaints: Hypertension, Syncope/Dizziness/Ligh theadedness PMH: Hypertension, Other Allergies: Unknown Comments: Verified [...] to the ER for a work up ...................... ...................... ...................... ...................... ...................... ...................... ......... Procedures Analyst Note From Jessica Samuels: Community Procedures Analyst Graeme Samuels CCA1 dispatched to a [place] [facility] for a 78 yof C/O dizziness. Upon [...] or arm drift. She was not anticoagulated. C consulted; pt was informed that she needed to call 911 and R/O cerebellar CVA in the ED. Pt and family agreed, 911 was called, Landy SMALL arrived and transported her to [facility] ED. ...................... ...................... ...................... ...................... ...................... ...................... ......... Disposition: Fulfilled SAPPHIRE HAWTHORNE MD [address] [place] [address],[address], [place], [phone], [employer] 08/05/2023 23:15:46 09/03/2024 text/html [facility] Nurse Triage Notes (Jenifer Murillo): Reason For Request: Possible UTI. Patient Reports: Unable to void greater than 5 hoursDenies: Erection that will not go away after 2 hours Fall or trauma that results in urinary incontinence in the setting of pain Fall or injury that results in incontinence in the absence of pain Lower back pain either unilateral or bilateral, unable to void, painful urination -hematuria Chief Complaints: Urinary SymptomsPMH: Hypertension, HyperlipidemiaPMH Reviewed at 09/03/2024 13:48Allergies Reviewed at 09/03/2024 - :48Comments: Unable to void today. Unable to urinate at the lab today. Last void at 7am. Patient is not experiencing any pain currently. Patient has been increasing fluid intake today. Has not been recently treated for a UTI. Denies fever/chills. Education provided on the response time and the member was advised to monitor reported s/s and seek emergency treatment if needed. Procedures Analyst Organization Information for Lucas Yusuf Legal Name: [employer] Address: [address] [place] [id number], [employer] Etching Processor: Denis Ochoa MD CLIA No.: [id number] Procedures Analyst POC Test Results from Lucas Yusuf iSTAT Chem8+ (15:55:37) Na: 127 mEq/L K: 3.8 mEq/L Cl: 91 mEq/L iCa: 1.19 mmol/L TCO2: 25 mmol/L Glu: 104 mg/dL BUN: 15 mg/dL Crea: 1.1 mg/dL Hct: 27 % Hb: 9.2 g/dL A mmol/L Attachments uploaded as part of this test result can be found under Documents section. Urine Dipstick (16:29:08) Urine leukocytes: 70 CLARISA Urine nitrites: - NIT Urine urobilinogen: 0.2 URO Urine protein: 15 PRO Urine pH: 7.5 pH Urine blood: + BLO Urine specific gravity: 1.000 SG Urine ketones: 5 KET Urine bilirubin: - KARLEE Urine glucose: - GLU Attachments uploaded as part of this test result can be found under Documents section. ...................... ...................... ...................... ...................... ...................... ...................... ......... Procedures Analyst Note From Lucas Yusuf: SC12 dispatched to the address listed above for the report of a female green party with urinary retention. Arrival on scene, SC unable to gain access to apartment complex so delayed until daughter arrived. Patient was found inside ambulating well to a seated position, alert and oriented x4, patent airway, breathing non labored speaking in complete sentences, skin WPD in no immediate distress. +/= Chest rise. -SOB, -CP, -NVD, -Trauma, -Fever. GCS 15. Abdomen soft, non tender, and non distended. Patient reports that she last urinated at 0700 this morning, patient reports that she has since been unable to urinate despite feeling the urge to urinate. Patient reports she has been drinking plenty of water along with normal food intake, medication compliant as well. Patient also reports left flank pain additionally over the past day or so. When patient was able to urinate, patient denied any strong smelling urine or burning sensation when urinating. Patient denies any recent fevers, trauma, or infections. Patient also reports history of UTI's. Patient vital signs obtained as noted. [facility] was consulted, provided order for lab draw and BMP, insertion of baez catheter, urine cultures for send out and Urine dipstick. Patient agreed to all treatments listed above. Blood draw complete via 23 gauge butterfly in right AC, ISTAT BMP performed as noted, IV removed at end of blood draw. 16 Fr Baez catheter inserted with sterile procedure, balloon inflated with 10ml sterile water, pulled until resistance was met. Baez catheter insertion successful with urine drainage into bag, tubing taped and secured to patient thigh without incident. Urine sample obtained from Baez Catheter port, urine cultures obtained followed by urine dipstick as noted. [facility] consulted again and discussed red flags with both patient and daughter, advised to follow up with PCP as soon as they can. Daughter was instructed on how to drain Baez catheter bag as well. SC12 clear. [facility] Lab Orders: BMP, serum or plasma: Performed culture, urine: Performed urinalysis, dipstick: Performed ...................... ...................... ...................... ...................... ...................... ...................... ......... [facility] Consulted: Katerine Urena ...................... ...................... ...................... ...................... ...................... ...................... ......... Disposition: Fulfilled SEGMD: As above-patient has history of HTN, chronic lymphocytic leukemia, and chronic low back pain according to her daughter Tejas-please note the phone number in the [facility] she referral is her daughter's phone number and she and the patient patient asked requests the daughter to be called with any follow-up as she takes care of all her mother's medical needs. Patient has been drinking mostly multiple cups of water occasionally mixed with apple juice Katerine Urena MD [address] [place] [address],[address], [place], [phone], [facility] - [employer] 09/03/2024 18:30:40 09/05/2024 text/html [facility] Nurse Triage Notes (Alicia Draper): Chief Complaints: Abnormal Lab Value PMH: Hypertension, Hyperlipidemia PMH Reviewed at 09/05/2024 - 10:32 Allergies Reviewed at 09/05/2024 - 10:32 Comments: 09/03/24- pat was in acute urinary retention ( 1L)- we left baez in-and was anemic: H & H 9.01/26 but has hx CLL- also hyponatremic ( NA 127 with nl BUN/cr). Can you pls reach out to healthcare science specialist- she needs to see her urologist and pcp TRICIA if they could assist with that pls. Her daughter TEJAS will also call PCP and urology tomorrow. Can [facility] pls call to check on patient tomorrow- has never had a baez/ if pcp cannot see within in 48 hours will need a revisit and repeat labs. 09/04- 09/04 I spoke to the daughter, she has reached out to her urologist and hopes she will have a visit tomorrow, but would like us to call her on 09/05 to verify 09/05- urine culture, routine Final report final 09-05-2024 result 1 No growth 09/05 10:06a- I spoke to the daughter, Tejas, she reports calling the PCP office multiple times with no return call back, and is still awaiting urology referral, she currently has an appt scheduled 09/09. Per follow up patient should have repeat labs, daughter amenable to a visit. A new visit has been placed for 09/05 Procedures Analyst Organization Information for Kieran Wilkins [employer] Legal Name: [employer] Address: [address] [place] [address], [employer] Processor: Denis Ochoa MD CLIA No.: [id number] Procedures Analyst POC Test Results from Kieran Wilkins iSTAT Chem8+ (15:11:57) Na: 129 mEq/L K: 3.9 mEq/L Cl: 94 mEq/L iCa: 1.18 mmol/L TCO2: 25 mmol/L Glu: 113 mg/dL BUN: 13 mg/dL Crea: 0.9 mg/dL Hct: 29 % Hb: 9.9 g/dL A mmol/L Attachments uploaded as part of this test result can be found under Documents section. ...................... ...................... ...................... ...................... ...................... ...................... ......... Procedures Analyst Note From Kieran Wilkins: Dispatched to above address for abnormal labs, follow up with patient. On arrival patients daughter met EMS at the door, reports patient was seen on the for urinary retention, found to be hyponatremic and anemic on lab test, urine culture negative, has follow up on the with PCP still unable to get a call back from urology. Patient 79 y/o F, found sitting in chair, AOX4, airway patent, speaking in full sentences, good color, in no apparent distress. Patients vital signs checked. Secondary assessment, pupils PERRL, airway patent, no JVD, trachea midline, equal chest rise and fall, lungs clear all youssef, abdomen soft non tender, no signs of trauma, good radial pulse, skin pink warm and dry. Patient and family have no new complaints. [facility] contacted, spoke with Dr. Velasquez advised of complaints and follow up. [facility] ordered Chem 8 be checked. Lab draw preformed, Chem 8 checked, results uploaded. Showed improvement from last test. [facility] recommends drinking Gatorade/ Pedialyte, follow up with urology and PCP as already planned and home monitoring of symptoms. Patient and family agree with this plan. Patient and family have no additional questions or concerns at this time. SC8 clear. EOR. [facility] Lab Orders: BMP, serum or plasma: Performed hemoglobin + hematocrit, blood: Performed ...................... ...................... ...................... ...................... ...................... ...................... ......... [facility] Consulted: Derek Velasquez ...................... ...................... ...................... ...................... ...................... ...................... ......... Disposition: Fulfilled Derek Velasquez MD [address] [facility],[address], [place], [phone], [employer] - [employer] 09/05/2024 15:40:35 OBGyn Episode No OBEpisode recorded.
--- OUTSIDE RECORDS SUMMARY | 2024-09-16 10:25 | XMS_ITS | Continuity of Care Document ---
Author Organization [employer] [facility], [place] - [facility] Address [address] [place] [id number] Care Team Providers Care [employer] Information Center Officer Name Role Phone HIM VANNESSA OTHER SUSANASHARMAINE WHITE OTHER SACHIN ARTIS OTHER Assessment Encounter Date Assessment Date Assessment LastModified by Organization Details LastModified Time 09/03/2024 09/03/2024 I provided real -time medical direction via phone for this encounter, and was available for additional phone based assistance as needed. I have reviewed and agree with the Assessment and Plan as documented by the Tie Loader. We discussed the diagnostic uncertainty of home [...] 911- verbalized understanding of instructions to me Not available 09/03/2024 18:24:36 Plan of Treatment Reminders Order Date Submit Date Provider Last Modified By Organization Details Last Modified Time Details Appointments None recorded. Lab BMP, serum or plasma 2024 025 LATON [facility], [address] [place] [address], [id number], 17:27:20 culture, urine 2024 025 LATON [facility] (Centralized Electronic Ordering - All Locations), Patient Can Go To The Location Of Their Choice, [id number] 06:07:47 urinalysis , dipstick 2024 025 [facility], [address] [place] [address], [place], [phone], 08:17:32 Referral None recorded. Procedures catheteriz sasha gerardo (PROC) 2024 025 [email or web address] 0 Not available 18:30:24 Surgeries None recorded. Imaging None recorded. Medication Orders None recorded. Patient TargetsNo targets recorded. Patient InstructionsNo instructions recorded. Reason for Referral None Reported. Results Created Date Observation Date Name Description Value Unit Range Abnormal Flag Note LastModifiedBy Organization Detail LastModifiedTime Result Notes None recorded. Medical Equipment None Reported. Allergies Allergen ID Allergen Name Allergen Category Reaction Reaction Severity Criticality Documentation Date Start Date Code Code System Note Provider Name and Address Organization Details Recorded Time 67516 amoxicill in medicatio n Not available Not [...] Available No t Available Vitals Date Recorded Oxygen saturation Oxygen saturation in Arterial blood by Pulse oximetry Body temperature Heart rate Respiratory rate Systolic blood pressure Diastolic blood pressure Provider Name and Address Organization Details Last Updated DateTime 5 99 % 99 % 98.5 [degF] 80 /min 18 /min 158 mm[Hg] 71 mm[Hg] Not Available [facility] - production 5 15:23:02 Social History None recorded. Functional Status None recorded. Mental Status None recorded. Family History Nothing Reported. Medical History No medical history recorded. Gynecological HistoryNo gynecological history recorded. Obstetrics History GPAL:G 0 P 0 0 0 0 Past Encounters Encounter ID Performer Location Encounter Start Date Encounter Closed Date Diagnosis/Indication Diagnosis SNOMED-CT Code Diagnosis ICD10 Code Diagnosis Note [id number] Katerine Urena MD Main - [facility] [address] [place] [phone] 09/03/2024 15:22:59 09/03/2024 19:09:53 Urinary symptoms [id number] R39.9 spoke with patient and her daughter- [...] to CRC to reach out to healthcare project manager-re garding she needs to see her urologist and pcp TRICIA if they could assist with that pls. Her daughter TEJAS will also call PCP and urology tomorrow. Can CRC pls call to check on patient tomorrow- has never had a baez/ if pcp cannot see within in 48 hours will need a revisit and repeat labs. Health Concerns Section Related Observation LastModified by Organization Detai ls LastModified Time None Recorded Concern Status LastModified by Organization Details LastModified Time None Recorded Payers Encounter Date Sequence Insurance Name Policy Number Policy Noe Covered Member ID Noe Member ID Guarantor Name 09/03/2024 1 [facility] - DOS ON OR AFTER 2022 - DUAL ELIGIBLE - USP OPTIONS AND ONE CARE (MEDICARE REPLACEMENT/ADV ANTAGE - HMO) Geoffrey Long [id number] Geoffrey Long Notes Date Note Type Note Provider Name and Address Organization Details Recorded Time 09/03/2024 text/html CRC Nurse Triage Notes (Jenifer [...] Urinary SymptomsPMH: Hypertension, HyperlipidemiaPMH Reviewed at 09/03/2024 - 13:48Allergies Reviewed at 09/03/2024 - 13:48Comments: Unable to void today. Unable to urinate at the lab today. Last void at 7am. Patient is not experiencing any pain currently. Patient has been increasing fluid intake today. Has not been recently treated for a UTI. Denies fever/chills. Education provided on the response time and the member was advised to monitor reported s/s and seek emergency treatment if needed. Tie Loader Organization Information for Lucas Yusuf Legal Name: [employer] Address: [address] [place] [address], Ice Cream Machine Operator: Denis Ochoa MD CLIA No.: [id number] Tie Loader POC Test Results from [facility] [...] ...................... ...................... ...................... ...................... ...................... ...................... ......... Tie Loader Note From Lucas Yusuf: SC12 dispatched to the address listed above for the report of a female green party with urinary retention. Arrival [place] scene, [place] unable to gain access to apartment complex [...] UTI's. Patient vital signs obtained as noted. [facility] [place], provided order for lab draw [...] obtained followed by urine dipstick as noted. [facility] consulted again and discussed red flags with both patient and daughter, advised to follow up with PCP as soon as they can. Daughter was instructed on how to drain Baez catheter bag as well. SC12 clear. [facility] Lab Orders: BMP, serum or plasma: Performed culture, urine: Performed urinalysis, dipstick: Performed ...................... ...................... ...................... ...................... ...................... ...................... ......... [facility] Consulted: Katerine Urena ...................... ...................... ...................... ...................... ...................... ...................... ......... Disposition: Fulfilled SEGMD: As above-patient has history of HTN, chronic lymphocytic leukemia, and chronic low back pain according to her daughter Amal-please note the phone number [facility] she referral is her daughter's phone number and she and the patient patient asked requests the daughter to be called with any follow-up as she takes care of all her mother's medical needs. Patient has been drinking mostly multiple cups of water occasionally mixed with apple juice Katerine Urena MD [address] [facility],[address], [place], [phone], [employer] 09/03/2024 18:30:40 OBGyn Episode No OBEpisode recorded.
== END 2024-09-16 10:42 | disposition home or self-care (01) ==
LOC: HO.HMCH 09:35
PROVIDERS: PCP Internal Medicine; Visit Provider Internal Medicine
DX: R33.9 Retention of urine, unspecified (principal); C91.10 Chronic lymphocytic leukemia of B-cell type not having achieved remission; M48.062 Spinal stenosis, lumbar region with neurogenic claudication; I10 Essential (primary) hypertension; E78.5 Hyperlipidemia, unspecified; E87.1 Hypo-osmolality and hyponatremia; E87.6 Hypokalemia

== ENCOUNTER → 2024-09-16 09:34 | Outpatient (BNVA) | payer OTHER, SELFPAY | PROVIDERS: PCP Internal Medicine; Visit Provider Internal Medicine | DX: R33.9 Retention of urine, unspecified (principal); C91.10 Chronic lymphocytic leukemia of B-cell type not having achieved remission; M48.062 Spinal stenosis, lumbar region with neurogenic claudication; I10 Essential (primary) hypertension; E78.5 Hyperlipidemia, unspecified; E87.1 Hypo-osmolality and hyponatremia; E87.6 Hypokalemia | CPT/HCPCS: 96127; 99212 ==

== ENCOUNTER 2024-12-19 15:18 | Outpatient (REF) | payer OTHER, SELFPAY ==
--- NOTE | ~2024-12-19 | XR_ITS ---
EXAMINATION: XR LUMBOSACRAL SPINE CLINICAL INFORMATION: M54.9 - Dorsalgia, unspecified COMPARISON: None available. TECHNIQUE: Three views of the lumbosacral spine. FINDINGS: Right upper quadrant clips are likely related to cholecystectomy. A surgical clip projects over the medial superior right femoral head. There is S-shaped curvature of the lumbar spine measuring 22 degrees convex left in the upper lumbar and 14 degrees convex right in the lower lumbar spine. There is moderate vascular calcification in the abdominal aorta and common iliac arteries. There are 5 nonrib-bearing lumbar segments. L1 demonstrates wedge-shaped deformity with severe loss of height. L2 demonstrates mild osteophyte from the superior endplate. L4 demonstrates mild to moderate osteophyte from the superior endplate. There is grade 1 retrolisthesis at L1-2, L2-3, and L3-4. There is subtle anterolisthesis at L4-5. There is multilevel moderate disc space narrowing, endplate sclerosis, and osteophytes. There is also facet sclerosis with osteophytes, more advanced in the lower lumbar spine. XR/XR lumbar spine 2-3V IMPRESSION: Age-indeterminate compression fractures of L1, L2, and L4. Moderate degenerative disc disease and facet arthropathy. Mild S-shaped scoliosis. Electronically signed by: Kannan Timmons MD 12/19/2024 04:51 PM EDT
[2024-12-19 17:43] LABS: Appearance Urine Clear; Color Urine Yellow; Glucose Urine UA Negative (Negative); Leukocyte Esterase Urine Large (3+) (Negative); Nitrite Urine Negative (Negative); PH 7.5 (5.0-9.0); Specific Gravity - Urine <= 1.005 (1.005-1.025); UMIC TRIGGER UACC YES; Urine Blood Trace (Negative); Urine Ketones Negative (Negative); Urine Protein Negative (Neg-Trace)
[2024-12-19 17:52] LABS: Bacteria Urine Trace (None Seen); Hyaline Casts Urine 0-2 /LPF (0-2); RBC Urine 0-2 /HPF (0-2); Squamous Epithelial Cell Urine 0-2 /HPF (0-2); UACC Culture Trigger YES; WBC Urine 21-50 /HPF (0-5)
== END 2024-12-19 15:19 | disposition home or self-care (01) ==
LOC: HO.XRAY 15:18
PROVIDERS: Internal Medicine; PCP Internal Medicine
DX: M54.50 Low back pain, unspecified (principal); I10 Essential (primary) hypertension
CPT/HCPCS: 72100; 81001; 87086; 99212

== ENCOUNTER 2024-12-19 15:18 | Outpatient (AMB) | payer OTHER, SELFPAY ==
[2024-12-19 15:38] VITALS: BP 120/58; PULSE 80; TEMP 36.3; O2SAT 97
--- NOTE | 2024-12-19 15:38 | A.OFFPC_ITS ---
Vital Signs 12/19/24 15:38 Height 5 ft BMI Reason not done Palliative Care Patient BP 120/58 L Blood Pressure Location Rt brachial Position Sitting Pulse 80 Pulse Source Pulse Oximeter Temp 97.3 F Temp Source Temporal Artery Scan Pulse Oximetry (%) 97 Oxygen Delivery Method Room Air Intake Visit Reasons: Back Pain Allergies amoxicillin (Amoxicillin) Allergy (Unknown, Verified 12/19/24 15:40) SORES IN MOUTH Medication List - Last Reconciled 12/19/24 by Caren Rankin PA-C amlodipine 10 mg PO DAILY atorvastatin 10 mg PO BEDTIME back brace As directed [Bed Rails As directed] buspirone mg PO gabapentin 100 mg PO BID hydrochlorothiazide 12.5 mg PO DAILY imipramine HCl 50 mg PO DAILY incontinence pad, liner, disp (Prevail Panty Liner pads) As directed Knee brace As directed lidocaine 5% 1 patch topical DAILY 30 days lorazepam 0.5 mg PO BID PRN multivitamin 1 tab PO DAILY omeprazole 20 mg PO DAILY sertraline 200 mg (2 x 100 mg) PO DAILY Shower Chair As directed [Transport Wheelchair As directed] [ultra light rollator ultra light rollator with seat and brakes] walker (Ultra-Light Rollator misc) As directed Tobacco use date assessed: 09/16/24 Dental Screening Dental Screen Date: 09/16/24 HPI Back Pain HPI Details 79-year-old female with past medical his tory of hypertension, hyperlipidemia, CLL, depression, GERD last seen 08/[address] Martinez coming in for acute problem. Presenting with severe back pain resulting in the inability to walk. The back pain started approximately two weeks ago and has progressively worsened, leading to the patient's inability to walk. The pain was initially located at the top of the back but has since moved downwards, with no radiation to the legs and denies any recent falls or injuries but has a history of fractures and rehabilitation. The patient has been using gabapentin for pain management, which has been ineffective. [facility] Medical History Inguinal hernia Osteoarthritis Hypertension Pre-op exam Surgical History History of back surgery Family History Father No problems noted. Mother No problems noted. Social History Housing: House Alcohol intake: never Patient Tobacco Use Status: Never used Tobacco Tobacco use type: Cigarette e-Cigarette/Vaping Use: Never Used Second Hand Smoke Exposure: No service: No Current occupational status: retired Cognitive needs: Yes (walker) Hearing needs: No Vision needs: No Questionnaire Thrive Questionnaire Date Thrive assessed: 09/16/24 OLGA-7 AMB Questionnaire OLGA-7 Date OLGA - 7 assessed: 09/16/24 Source: Developed by Drs. Grey Ashby, Beth Womack, Chris Caraballo and colleagues, with an educational courtney from [employer]. Review of Systems Const Denies body aches, Denies chills, Denies fever(s), Denies headache(s) and Denies poor appetite Eyes Reports no additional complaints ENT Denies dizziness and Denies headache(s) Card Denies chest pain, Denies lightheadedness and Denies dyspnea Resp Denies cough and Denies dyspnea GI Denies abdominal pain, Denies nausea and Denies vomiting Reports no additional complaints Musc Reports no additional complaints and Denies abnormal gait Skin/Breast Reports system reviewed and no additional complaints, except as documented Neuro Denies abnormal gait, Denies dizziness and Denies headache(s) Psych Reports no additional complaints Physical exam (Primary Care) Vital Signs: Last Vital Signs Temp 97.3 F 12/19/24 15:38 Pulse 80 12/19/24 15:38 BP 120/58 L 12/19/24 15:38 Pulse Ox 97 12/19/24 15:38 Oxygen Delivery Method Room Air 12/19/24 15:38 Tobacco/Smoking Status: Tobacco use Status Tobacco use date assessed 09/16/24 12/19/24 15:40 Patient Tobacco Use Status Never used Tobacco 12/19/24 15:40 Tobacco use type Cigarette 12/19/24 15:40 e-Cigarette/Vaping Use Never Used 12/19/24 15:40 Thrive Assessment: Date of Thrive Assessment Date Thrive assessed 09/16/24 12/19/24 15:40 Const General: cooperative, healthy appearing, comfortable and no acute distress Orientation/consciousness: patient oriented x3 HENMT Head: Yes normocephalic Ears: hearing grossly normal bilaterally General nose exam: Normal external nose present Eyes General: appearance normal, both eyes and all related structures Conjunctivae: conjunctivae normal Neck Neck: Yes full ROM and Yes no lymphadenopathy Resp Effort & Inspection: normal respiratory effort Auscultation: clear to auscultation bilaterally, no crackles, no rales, no rhonchi and no wheezes Cardio Rate: regular rate Rhythm: regular rhythm General: Yes no CVA tenderness Back/Spine/Pelvis Other: Tenderness to palpation over lumbar spine Back: no CVA tenderness Skin General skin exam: no rashes or lesions noted Neuro General: patient oriented x3 Gait exam (Neuro): Normal gait present Extrem Other: Intact strength and sensation of bilateral lower extremities General: Yes normal to inspection, Yes full ROM and No edema Psych Affect: normal affect Attitude: cooperative Insight: Good insight present (Psych) Judgement: Good judgement present (Psych) Coding Level of Care Code Est Pt Level 4 (28716) Diagnoses Acute midline low back pain without sciatica M54.50 Back pain location: low back pain Chronicity: acute Back pain laterality: midline Sciatica presence: without sciatica Assessment & Plan Assessment & Plan (1) Back pain: Code(s): M54.9 - Dorsalgia, unspecified Category: Medical Qualifiers: Back pain location: low back pain Chronicity: acute Back pain laterality: midline Sciatica presence: without sciatica Qualified Code(s): M54.50 - Low back pain, unspecified Plan: The plan includes obtaining a lumbar spine x-ray to rule out any fractures or other underlying causes of the back pain and urinalysis, given the patient's history of fractures and current symptoms. A short course of oxycodone is prescribed for breakthrough pain, with instructions to use it sparingly due to potential side effects such as drowsiness and urinary retention. The patient is advised to continue using Tylenol and heating pads for pain management, and to monitor for any changes in symptoms. Follow-up will be arranged based on the x- ray results, and further management will be determined accordingly. Plan This note was constructed using voice recognition software. While every effort has been made to ensure accuracy and cushion filler, still areas may have been included sometimes these areas may affect the content or meeting of the given symptoms. Total time spent caring for the patient today was 20 minutes. This includes time spent before the visit reviewing the chart, time spent during the visit, and time spent after the visit and documentation. Patient was informed and verbally consented to the use of an ambient scribe for clinic note documentation during this visit. Orders: Orders XR lumbar spine 2-3V 12/19/24 M54.9 - Dorsalgia, unspecified Medications: New oxycodone Partial Fill upon patient request. 5 mg PO Q8H PRN 10 tabs 0RF pain
--- OUTSIDE RECORDS SUMMARY | 2024-12-19 16:34 | XMS_ITS | Clinical Summary ---
Author Organization [facility] Address [address] [place] [address] Care Team Providers Care Bone Char Kiln Tender Name Role Phone Michael Blanchard MD Primary Care Provider [phone] Allergies No known active allergies Medications Medication [...] 74 04/20/2022 2:07 PM EDT Temperature 36.9 C (98.4 F) 04/20/2022 2:07 PM EDT Respiratory Rate - - Oxygen Saturation 100% [...] Pfizer risk series) 04/08/2021 03/18/2021 Influenza Vaccine (Season Ended) 2025 Hepatitis B Vaccines Aged Out No long er eligible based on patient's age to complete this topic RSV Ped < 20 months Aged Out No longe r eligible based on patient's age to complete this topic Care Teams Bone Char Kiln Tender Relationship Specialty Start Date End Date Michael Blanchard MD [address] [place] [address] [place] [id number] PCP - General Internal Medicine 12/19/18
== END 2024-12-19 16:05 | disposition home or self-care (01) ==
LOC: HO.HMCH 15:18
PROVIDERS: PCP Internal Medicine
DX: M54.50 Low back pain, unspecified (principal)

== ENCOUNTER → 2024-12-19 16:18 | Outpatient (BNV) | payer OTHER, SELFPAY | PROVIDERS: PCP Internal Medicine; Visit Provider Radiology Diagnostic Radiology | DX: M51.360 Other intervertebral disc degeneration, lumbar region with discogenic back pain only (principal) | CPT/HCPCS: 72100 ==

== ENCOUNTER 2025-03-18 09:54 | Outpatient (AMB) | payer OTHER, SELFPAY ==
[2025-03-18 09:57] VITALS: BP 124/82; PULSE 79; TEMP 36.3; O2SAT 100; BMI 22.9
--- NOTE | 2025-03-18 09:57 | MHC.PC.OV ---
Vital Signs 03/18/25 09:57 Height 5 ft Weight 117 lb 8.102 oz BMI 22.9 BP 124/82 Blood Pressure Location Lt brachial Position Sitting Pulse 79 Pulse Source Pulse Oximeter Temp 97.3 F Temp Source Temporal Artery Scan Pulse Oximetry (%) 100 Oxygen Delivery Method Room Air Intake Visit Reasons: 3M Follow Up Accompanied by: Daughter Allergies amoxicillin (Amoxicillin) Allergy (Unknown, Verified 03/18/25 10:00) SORES IN MOUTH Tobacco use date assessed: 03/18/25 Fall risk assessment: No Falls in past year Last assessed Fall Risk: 03/18/25 Dental Screening Dental Screen Date: 03/18/25 Did you have a dental visit in the last 12 months?: No Did you have a dental problem in the last 6 months where you did not have access to dental care?: No Was dental information given to patient?: Patient declined [facility] Medical History Inguinal hernia Osteoarthritis Hypertension Pre-op exam Surgical History History of back surgery Family History Father No problems noted. Mother No problems noted. Social History Housing: House Alcohol intake: never Patient Tobacco Use Status: Never used Tobacco Tobacco use type: Cigarette e-Cigarette/Vaping Use: Never Used Second Hand Smoke Exposure: No service: No Current occupational status: retired Cognitive needs: Yes (walker) Hearing needs: No Vision needs: No Questionnaire PHQ-9 Over the last 2 weeks, how often have you been bothered by any of the following problems? 1. Little interest or pleasure in doing things: not at all 2. Feeling down, depressed, or hopeless: several days 3. Trouble falling or staying asleep, or sleeping too much: several days 4. Feeling tired or having little energy: several days 5. Poor appetite or overeating: not at all 6. Feeling bad about yourself - or that you are a failure or have let yourself or your family down: not at all 7. Trouble concentrating on things, such as reading the newspaper or watching television: not at all 8. Moving or speaking so slowly that other people could have noticed. Or the opposite - being so fidgety or restless that you have been moving around a lot more than usual: not at all 9. Thoughts that you would be better off or of hurting yourself in some way: not at all Total score: 3 Source: Developed by Drs. Grey Ashby, Beth Womack, Chris Caraballo and colleagues, with an educational courtney from [employer] Thrive Questionnaire Date Thrive assessed: 03/18/25 I am a: Parent/Caregiver What is your living situation today?: I have a steady place to live Within the past 12 months, did the food you bought not last and you didn't have the money to get more?: Never true Within the past 12 months, did you worry whether your food would run out before you got money to buy more?: Never true Do you have trouble paying for medicines?: No Do you have trouble getting transportation to medical appointments?: No Do you have trouble paying your heating and electricity bill?: No Do you have trouble taking care of your child, family member or friend?: No Do you have trouble with day-to-day activities such as bathing, preparing meals, shopping, managing finances, etc.?: No Are you currently unemployed and looking for a job?: No Are you interested in more education?: No THRIVE Score: 0 AUDIT C Alcohol Use Questionnaire (AUDIT-C) 1. How often do you have a drink containing alcohol?: Never 3. How often do you have six or more drinks on one occasion?: Never Total Score: 0 OLGA-7 AMB Questionnaire OLGA-7 Date OLGA - 7 assessed: 09/16/24 Feeling nervous, anxious, or on edge: 0 = Not at all Not being able to stop or control worryin = Not at all Worrying too much about different things: 0 = Not at all Trouble relaxin = Not at all Being so restless that it is hard to sit still: 0 = Not at all Becoming easily annoyed or irritable: 0 = Not at all Feeling afraid as if something awful might happen: 0 = Not at all Total OLGA-7 score (0-4 normal; 5-9 mild; 10-14 moderate; 15-21 severe): 0 Source: Developed by Drs. Grey Ashby, Beth Womack, Chris Caraballo and colleagues, with an educational courtney from [employer] Physical exam (Primary Care) Vital Signs: Last Vital Signs Temp 97.3 F 03/18/25 09:57 Pulse 79 03/18/25 09:57 BP 124/82 03/18/25 09:57 Pulse Ox 100 03/18/25 09:57 Oxygen Delivery Method Room Air 03/18/25 09:57 BMI result Body Mass Index 22.9 Tobacco/Smoking Status: Tobacco use Status Tobacco use date assessed 03/18/25 03/18/25 10:03 Patient Tobacco Use Status Never used Tobacco 03/18/25 10:03 Tobacco use type Cigarette 03/18/25 10:03 e-Cigarette/Vaping Use Never Used 03/18/25 10:03 PHQ-9: PHQ-9 Score PHQ-9: Total score 3 03/18/25 10:31 Thrive Assessment: Date of Thrive Assessment Date Thrive assessed 03/18/25 03/18/25 10:03 Const General: alert; No acute distress Eyes Conjunctivae: conjunctivae normal Resp Auscultation: clear to auscultation bilaterally Cardio Rate: regular rate Rhythm: regular rhythm GI Inspection: Yes normal to inspection Extrem General: Yes normal to inspection and No edema Coding Level of Care Code Est Pt Level 4 (12611) Complex EM visit Add On G2211 Diagnoses Hypertension I10 Hyperlipidemia E78.5 Hyponatremia E87.1 Gastroesophageal reflux disease without esophagitis K21.9 Esophagitis presence: without esophagitis Uterovaginal prolapse N81.4 CLL (chronic lymphocytic leukemia) C91.10 Spinal stenosis of lumbar region with neurogenic claudication M48.062 Neurogenic claudication status: with neurogenic claudication Assessment & Plan Assessment & Plan (1) Hypertension: Code(s): I10 - Essential (primary) hypertension Category: Medical Plan: Continue with blood pressure medication. Decrease salt intake and exercise on amlodipine 10 mg once a day hydrochlorothiazide 12.5 mg once a day (2) Hyperlipidemia: Code(s): E78.5 - Hyperlipidemia, unspecified Category: Medical Plan: Avoid fried foods, chicken skin, eggs, butter margarine, pastries and meat. Be it pork or beef they have a lot of cholesterol patient is on atorvastatin 10 mg at bedtime (3) Hyponatremia: Code(s): E87.1 - Hypo-osmolality and hyponatremia Category: Medical Plan: Patient needs to get new blood work (4) GERD (gastroesophageal reflux disease): Code(s): K21.9 - Gastro-esophageal reflux disease without esophagitis Category: Medical Qualifiers: Esophagitis presence: without esophagitis Qualified Code(s): K21.9 - Gastro-esophageal reflux disease without esophagitis Plan: Avoid the foods that causes that usually spicy foods, tomato products, juices, coffee, soda and foods that your sensitive to. After eating do not lie down, allow 3-4 hours before in lie down. And keep the head of bed above 30 degrees to avoid the acid from going up. (5) Uterovaginal prolapse: Comment: colpocleisis done 01/2025 Code(s): N81.4 - Uterovaginal prolapse, unspecified Category: Medical Plan: Received notes on planned colpocleisis. done in 01/2025 (6) CLL (chronic lymphocytic leukemia): Code(s): C91.10 - Chronic lymphocytic leukemia of B-cell type not having achieved remission Category: Medical Plan: Patient follows up with Hematology-Oncology (7) Lumbar canal stenosis: Code(s): M48.061 - Spinal stenosis, lumbar region without neurogenic claudication Category: Medical Qualifiers: Neurogenic claudication status: with neurogenic claudication Qualified Code(s): M48.062 - Spinal stenosis, lumbar region with neurogenic claudication Plan: Patient has seen pain management and planned fluoroscopic guidance injections. Plan History of Present Illness The patient is an 80-year-old female presenting for a follow-up visit. She has a history of lumbar spinal stenosis, managed with gabapentin, Tylenol, and a back brace. MRI findings have shown degenerative disc disease and arthritis, contributing to her back pain. The patient also has a history of hypertension, managed with amlodipine 10 mg once daily and hydrochlorothiazide 12.5 mg once daily. Her blood pressure management plan includes regular monitoring and adjustments as needed. Hypercholesterolemia is treated with atorvastatin 10 mg at bedtime. The patient is advised to undergo regular blood work to monitor cholesterol levels and adjust medication accordingly. The patient has chronic lymphocytic leukemia and follows up with hematology oncology regularly. She experiences easy bruising, weight loss, and failure to thrive, which are monitored by her specialists. Cognitive decline has been noted, and the patient is under regular observation for any progression. Gastroesophageal reflux disease (GERD) is managed with dietary modifications and medications as needed. The patient underwent colpocleisis for uterovaginal prolapse, with the procedure performed approximately three weeks ago. She is recovering well post-surgery, with no complications reported. A CT scan of the abdomen and pelvis showed a hiatal hernia containing the distal stomach and proximal to mid transverse colon. The scan also indicated effective decompression of the stomach. Blood work from July indicated anemia with a hemoglobin level of 10.3 g/dL and hyponatremia. Health Maintenance - Regular blood work to monitor cholesterol and blood pressure levels - Follow-up with hematology oncology for chronic lymphocytic leukemia - Dietary modifications for GERD management - Post-surgical follow-up after colpocleisis - Consideration of bone density testing due to fracture risk - Discussion of calcium and vitamin D supplementation for bone health Social History - Resides in a community with other elderly individuals - Engages in outdoor activities and walking for exercise - Consumes a diet including homemade yogurt for calcium intake Review of Systems - Musculoskeletal: Reports back pain due to lumbar spinal stenosis - Hematologic: Reports easy bruising and weight loss - Neurological: Reports cognitive decline - Gastrointestinal: Reports symptoms of GERD Physical Exam Results - Labs: Anemia with hemoglobin level of 10.3 g/dL, hyponatremia - Imaging: MRI showing degenerative disc disease and arthritis - Imaging: CT scan of the abdomen and pelvis showing hiatal hernia and effective decompression of the stomach Plan Patient was informed and verbally consented to the use of an ambient scribe for clinic note documentation during this visit. 1. Lumbar Spinal Stenosis The patient is advised to continue using gabapentin and Tylenol for pain management, along with a back brace for support. She is also advised to follow up with pain management for further evaluation and possible lumbar epidural steroid injections. 2. Hypertension The patient's hypertension is managed with amlodipine 10 mg once daily and hydrochlorothiazide 12.5 mg once daily. Regular monitoring of blood pressure is recommended to ensure optimal control. 3. Hypercholesterolemia The patient is on atorvastatin 10 mg at bedtime for hypercholesterolemia. Regular blood work is advised to monitor cholesterol levels and adjust medication as needed. 4. Chronic Lymphocytic Leukemia The patient follows up with hematology oncology for chronic lymphocytic leukemia management. Symptoms such as easy bruising and weight loss are monitored by her specialists. 5. Cognitive Decline The patient is under regular observation for cognitive decline, with monitoring for any progression. 6. Gastroesophageal Reflux Disease (Gerd) GERD is managed with dietary modifications and medications as needed. 7. Uterovaginal Prolapse The patient underwent colpocleisis for uterovaginal prolapse and is recovering well post-surgery. 8. Degenerative Disc Disease Degenerative disc disease is managed with pain medications and supportive measures such as a back brace. 9. Hiatal Hernia A CT scan revealed a hiatal hernia, and the patient is advised to follow up for further evaluation and management. 10. Anemia Anemia was noted in blood work with a hemoglobin level of 10.3 g/dL, and further evaluation is recommended. 11. Hyponatremia Hyponatremia was identified in previous blood work, and monitoring of electrolyte levels is advised. Discussion Notes During the visit, we discussed the management of the patient's multiple chronic conditions, including hypertension, hypercholesterolemia, and chronic lymphocytic leukemia. We reviewed the importance of regular follow-ups with hematology oncology and the need for ongoing monitoring of blood pressure and cholesterol levels. The patient was advised on the benefits of dietary modifications for GERD and the necessity of post-surgical follow-up after colpocleisis. Patient Instructions - Continue taking gabapentin and Tylenol for back pain management. - Use a back brace as needed for support. - Follow up with pain management for further evaluation and possible injections. - Take amlodipine and hydrochlorothiazide as prescribed for blood pressure control. - Take atorvastatin at bedtime for cholesterol management. - Schedule regular blood work to monitor cholesterol and blood pressure levels. - Follow up with hematology oncology for chronic lymphocytic leukemia management. - Maintain dietary modifications for GERD management. - Attend post-surgical follow-up appointments after colpocleisis. - Consider bone density testing and discuss calcium and vitamin D supplementation with your doctor. Medications: Discontinued nitrofurantoin monohyd/m-cryst 100 mg (Macrobid) must administer with a meal/food Discontinued Reason: Doctor's Order 100 mg PO Q12H 7 days 14 caps 0RF
--- OUTSIDE RECORDS SUMMARY | 2025-03-18 12:50 | XMS_ITS | Clinical Summary ---
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 Active atorvastatin (LIPITOR) 10 mg tablet Take 1 tablet (10 mg total) by mouth. at bedtime. Active gabapentin (NEURONTIN) 100 mg capsule Take 1 capsule (100 mg total) by mouth 2 (two) times a day. 5 Active imipramine (TOFRANIL) 50 mg tablet Take 1 tablet (50 mg total) by mouth 1 (one) time each day. Active lidocaine (LIDODERM) 5 % patch 1 PATCH TOPICALLY DAILY FOR 30 DAYS LEAVE ON MOST PAINFUL AREA FOR UP TO 12 HRS *ARIANNA STERN 09/17 5 Active LORazepam (ATIVAN) 0.5 mg tablet Take 1 tablet (0.5 mg total) by mouth 2 (two) times a day if needed for anxiety. Max Daily Amount: 1 mg Active omeprazole (PriLOSEC) [address] capsule Take 1 capsule (20 mg total) by mouth 1 (one) time each day. 5 Active sertraline (ZOLOFT) 100 mg tablet Take 2 tablets (200 mg total) by mouth 1 (one) time each day. Active tamsulosin (FLOMAX) 0.4 mg 24 hr capsule Take 1 capsule (0.4 mg total) by mouth 1 (one) time each day. 03/07/202 5 Active Active Problems Problem Noted Date Diagnosed Date Anemia 12/01/2017 Anxiety and depression 12/01/2017 CLL (chronic lymphocytic andree kemia) ([facility] V24, [facility] V28) 12/01/2017 Weight loss 12/01/2017 Encounters Date Type Department Care Team Description 02/05/2025 Telephone [facility] Hematology Oncology [address] [place] [phone] Galina Ahuja MD 01/23/2025 11:00 AM EDT Office Visit [facility] Hematology Oncology [address] [place] [phone] Galina Ahuja MD CLL (chronic lymphocytic leukemia) ([facility] V24, [facility] V28) (Primary Dx); Vitamin D deficiency; Age-related osteoporosis with current pathological fracture, initial encounter from Last 3 Months Social History Tobacco Use Types Packs/Day Years Used Date Smoking Tobacco: Never Smokeless Tobacco: Never Tobacco Cessation:Counseling Given: Not Answered Alcohol Use Standard Drinks/Week Comments Never 0 (1 standard drink = 0.6 oz pur e alcohol) Comments Unknown Sex and Gender Information Value Date Recorded Sex Assigned at Not on file Legal Sex Female 7:01 AM EST Gender Identity Not on file Sexual Orientation Not on file Obstetrics History Last Filed Vital Signs Vital Sign Reading Time Taken Comments Blood Pressure 130/60 01/23/2025 11:14 AM EDT Pulse 82 01/23/2025 11:14 AM EDT Temperature 37.2 C (99 F) 01/23/2025 11:14 AM EDT Respiratory Rate - - Oxygen Saturation 100% 01/23/2025 11:14 AM EDT Inhaled Oxygen Concentration - - Weight 53.1 kg (117 lb) 01/23/2025 11:14 AM EDT Height - - Body Mass Index - - Plan of Treatment Upcoming Encounters Date Type Department Care Team (Late st Contact Info) Description 03/21/2025 10:30 AM EDT Appointment [facility] Bone Density [address] [place] [phone] 01/23/2026 11:00 AM EDT Office Visit [facility] Hematology Oncology [address] [place] [address] [phone] Galina Saenz MD [address] [place] [phone] Health Maintenance Due Date Last Done Comments DTaP,Tdap,and Td Vaccines (1 - Tdap) 01/02/1964 Pneumococcal Vaccine: 50+ Years (1 of 2 - PCV) 01/02/1964 Zoster Vaccines (1 of 2) 05/26/2016 03/31/2016 RSV Immunization Adult Patients (1 - 1-dose 75+ series) 01/02/2020 COVID-19 Vaccine (3 - Pfizer risk series) 06/26/2021 05/29/2021, 03/18/2021 Cholesterol Screening (Lipid Panel) 06/11/2022 Falls Risk Assessment 06/11/2022 Osteoporosis Screening (Bone Density Screening) 06/11/2022 Social Influencers of Health Screening 06/11/2022 Depression Screening 07/03/2024 Influenza Vaccine (#1) 2025 Hypertension/CHF/CAD Annual BMP Blood Test 01/23/2026 01/23/2025 HIB Vaccines Aged Out No longer eligi ble based on patient's age to complete this topic HPV Vaccines Aged Out No longer eligi ble based on patient's age to complete this topic Hepatitis A Vaccines Aged Out No long er eligible based on patient's age to complete this topic Hepatitis B Vaccines Aged Out No long er eligible based on patient's age to complete this topic IPV Vaccines Aged Out No longer eligi ble based on patient's age to complete this topic MMR Vaccines Aged Out No longer eligi ble based on patient's age to complete this topic Meningococcal ACWY Vaccine Aged Out N o longer eligible based on patient's age to complete this topic Meningococcal B Vaccine Aged Out No l onger eligible based on patient's age to complete this topic RSV Immunization Patients Under 20 months Aged Out No longer eligible b ased on patient's age to complete this topic Varicella Vaccines Aged Out No longer eligible based on patient's age to complete this topic Procedures Procedure Name Priority Date/Time Associated Diagnosis Comments MANUAL DIFFERENTIAL - SYSMEX WAM Routine 01/23/2025 11:36 AM EDT CLL (chronic lymphocytic leukemia) ([facility] V24, [facility] V28) CBC WITH AUTO DIFFERENTIAL Routine 01/23/2025 11:36 AM EDT CLL (chronic lymphocytic leukemia) ([facility] V24, [facility] V28) VITAMIN D 25 HYDROXY Routine 01/23/2025 11:36 AM EDT Vitamin D deficiency LACTATE DEHYDROGENASE Routine 01/23/2025 11:36 AM EDT CLL (chronic lymphocytic leukemia) ([facility] V24, [facility] V28) COMPREHENSIVE METABOLIC PANEL Routine 01/23/2025 11:36 AM EDT CLL (chronic lymphocytic leukemia) ([facility] V24, [facility] V28) CBC AND DIFFERENTIAL Routine 01/23/2025 11:36 AM EDT CLL (chronic lymphocytic leukemia) ([facility] V24, [facility] V28) from Last 3 Months Results * (ABNORMAL) Manual differential (01/23/2025 11:36 AM EDT) Neutrophils % 9.0 % LAB HEMETOLOGY METHOD 01/23/2025 2:03 PM [facility] Lymphocytes % 88.0 % LAB HEMETOLOGY METHOD 01/23/2025 2:03 PM [facility] Monocytes % 2.0 % LAB HEMETOLOGY METHOD 01/23/2025 2:03 PM [facility] Eosinophils % 2.0 % LAB HEMETOLOGY METHOD 01/23/2025 2:03 PM [facility] Basophils % 0.0 % LAB HEMETOLOGY METHOD 01/23/2025 2:03 PM [facility] Neutrophils Absolute Manual 2.62 1.50 - 7.00 K/mcL LAB HEMETOLOGY METHOD 01/23/2025 2:03 PM [facility] Lymphocytes Absolute 25.61(H) 1.00 - 5.00 K/mcL LAB HEMETOLOGY METHOD 01/23/2025 2:03 PM EDT [facility] Monocytes Absolute Manual 0.58 0.20 - 1.00 K/mcL LAB HEMETOLOGY METHOD 01/23/2025 2:03 PM EDT [facility] Eosinophils Absolute Manual 0.58(H) 0.00 - 0.50 K/[facility] LAB HEMETOLOGY METHOD 01/23/2025 2:03 PM EDT [facility] Basophils Absolute Manual 0.00 0.00 - 0.20 K/[facility] LAB HEMETOLOGY METHOD 01/23/2025 2:03 PM EDT [facility] Rbc Morphology Present( A) Consistent with indices, Normal for [place] LAB HEMETOLOGY METHOD 01/23/2025 2:03 PM EDT [facility] Platelet Morphology - WAM See Note(A) Normal LAB HEMETOLOGY METHOD 01/23/2025 2:03 PM EDT [facility] Comment:PLT: Normal Blood Venous blood specimen / Unknown Venipuncture / Unknown 01/23/2025 11:36 AM EDT 01/23/2025 1:26 PM EDT Galina Saenz MD LAB BLOOD ORDERABLE S Final Result [facility] [address] [place] [address], * (ABNORMAL) CBC auto differential (01/23/2025 11:36 AM EDT) WBC 29.1(H) 4.8 - 10.8 K/[facility] LAB HEMETOLOGY METHOD 01/23/2025 2:03 PM EDT [facility] RBC 2.90(L) 3.80 - 4.80 M/mcL LAB HEMETOLOGY METHOD 01/23/2025 2:03 PM EDT [facility] Hemoglobin 8.9(L) 11.5 - 16.0 g/dL LAB HEMETOLOGY METHOD 01/23/2025 2:03 PM [facility] Hematocrit 27.9(L) 35.0 - 47.0 % LAB HEMETOLOGY METHOD 01/23/2025 2:03 PM [facility] MCV 96.5 79.0 - 98.0 FL LAB HEMETOLOGY METHOD 01/23/2025 2:03 PM EDT [facility] MCH 30.8 27.0 - 32.0 pcg LAB HEMETOLOGY [facility]25 [facility] MCHC 31.9(L) 32.0 - 37.0 g/dL LAB HEMETOLOGY METHOD 01/23/2025 2:03 PM [facility] RDW 14.4 11.0 - 15.0 % LAB HEMETOLOGY METHOD 01/23/2025 2:03 PM [facility] Platelets 121(L) 130 - 400 K/mcL LAB HEMETOLOGY METHOD 01/23/2025 2:03 PM [facility] MPV 9.2 7.0 - 11.0 FL LAB HEMETOLOGY METHOD 01/23/2025 2:03 PM [facility] NRBC 0.0 <1.0 % LAB HEMETOLOGY METHOD 01/23/2025 2:03 PM [facility] NRBC Absolute 0.00 <0.10 K/mcL LAB HEMETOLOGY METHOD 01/23/2025 2:03 PM [facility] Blood Venous blood specimen / Unknown Venipuncture / Unknown 01/23/2025 11:36 AM EDT 01/23/2025 1:26 PM EDT Galina aSenz MD LAB BLOOD ORDERABLE S Final Result Performing Organization Address [facility]/ZIP Co de Phone Number [facility] [address] [place] [address], * Vitamin D 25 hydroxy (01/23/2025 11:36 AM EDT) Pathologist [facility] Vit D, 25-Hydroxy 42.2 30.0 - 80.0 ng/mL LAB CHEMISTRY METHOD 01/23/2025 2:34 PM EDT [facility] Blood Venous blood specimen / Unknown Venipuncture / Unknown 01/23/2025 11:36 AM EDT 01/23/2025 1:26 PM EDT Galina Saenz MD LAB BLOOD ORDERABLE S Final Result Performing Organization Address [facility]/ZIP Co de Phone Number [facility] [address] [place] [address], * Lactate dehydrogenase (01/23/2025 11:36 AM EDT) [facility] LDH 141 120 - 246 unit/L LAB CHEMISTRY METHOD 01/23/2025 1:45 PM EDT [facility] Blood Venous blood specimen / Unknown Venipuncture / Unknown 01/23/2025 11:36 AM EDT 01/23/2025 1:26 PM EDT Galina Saenz MD LAB BLOOD ORDERABLE S Final Result Performing Organization Address [facility]/ZIP Co de Phone Number [facility] [address] [place] [address], [place] [phone] * (ABNORMAL) Comprehensive metabolic panel (01/23/2025 11:36 AM EDT) [facility] Sodium 130(L) 133 - 145 mmol/L LAB CHEMISTRY METHOD 01/23/2025 1:45 PM EDT [facility] Potassium 3.9 3.5 - 5.5 mmol/L LAB CHEMISTRY METHOD 01/23/2025 1:45 PM [facility] Chloride 95(L) 96 - 110 mmol/L LAB CHEMISTRY METHOD 01/23/2025 1:45 PM [facility] CO2 28 21 - 32 mmol/L LAB CHEMISTRY METHOD 01/23/2025 1:45 PM [facility] Anion Gap 7 3 - 11 LAB CHEMISTRY METHOD 01/23/2025 1:45 PM [facility] Glucose 101(H) 70 - 100 mg/dL LAB CHEMISTRY METHOD 01/23/2025 1:45 PM [facility] BUN 11 5 - 25 mg/dL LAB CHEMISTRY METHOD 01/23/2025 1:45 PM [facility] Creatinine 0.69 0.50 - 1.10 mg/dL LAB CHEMISTRY METHOD 01/23/2025 1:45 PM [facility] eGFR 88 >=60 mL/min/1. 73m2 LAB CHEMISTRY METHOD 01/23/2025 1:45 PM [facility] Comment:Calculation based on the Chronic Kidney Disease Epidemiology Collaboration (CKD-EPI) equation refit without adjustment for race. BUN/Creatinine Ratio 15.9 LAB CHEMISTRY METHOD 01/23/2025 1:45 PM [facility] Calcium 8.8 8.5 - 10.5 mg/dL LAB CHEMISTRY METHOD 01/23/2025 1:45 PM [facility] AST (SGOT) 17 10 - 42 unit/L LAB CHEMISTRY METHOD 01/23/2025 1:45 PM [facility] ALT (SGPT) 22 10 - 60 unit/L LAB CHEMISTRY METHOD 01/23/2025 1:45 PM [facility] Alkaline Phosphatase 159(H) 42 - 121 unit/L LAB CHEMISTRY METHOD 01/23/2025 1:45 PM EDT [facility] Total Protein 6.3 6.0 - 8.0 g/dL LAB CHEMISTRY METHOD 01/23/2025 1:45 PM EDT [facility] Albumin 3.7 3.2 - 5.0 g/dL LAB CHEMISTRY METHOD 01/23/2025 1:45 PM EDT [facility] Total Bilirubin 0.5 0.0 - 1.4 mg/dL LAB CHEMISTRY METHOD 01/23/2025 1:45 PM EDT [facility] Blood Venous blood specimen / Unknown Venipuncture / Unknown 01/23/2025 11:36 AM EDT 01/23/2025 1:26 PM EDT Galina Saenz MD LAB BLOOD ORDERABLE S Final Result [facility] [address] [place] [address], from Last 3 Months Insurance [facility] Member Subscriber Plan / Payer (Ef fective 2022-Present) Name:LEDA LONG Relation to Subscriber:Self Name:Geoffrey Long Payer ID:[id number] Group ID:[id number] Type:Not on file Address: [place] [address] [place] [id number] Advance Directives Documents on File Type Date Recorded Patient Executive Sales Assistant Expl anation Health Care Decision (hx) 04/07/2021 AD GRAVES DIRECTIVE Health Care Decision (hx) 04/07/2021 AD GRAVES DIRECTIVE Health Care Decision (hx) 04/07/2021 AD GRAVES DIRECTIVE Care 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
== END 2025-03-18 10:55 | disposition home or self-care (01) ==
LOC: HO.HMCH 09:55
PROVIDERS: PCP Internal Medicine; Visit Provider Internal Medicine
DX: I10 Essential (primary) hypertension (principal); C91.10 Chronic lymphocytic leukemia of B-cell type not having achieved remission; E78.5 Hyperlipidemia, unspecified; E87.1 Hypo-osmolality and hyponatremia; K21.9 Gastro-esophageal reflux disease without esophagitis; N81.4 Uterovaginal prolapse, unspecified; M48.062 Spinal stenosis, lumbar region with neurogenic claudication

== ENCOUNTER → 2025-03-18 09:54 | Outpatient (BNVA) | payer OTHER, SELFPAY | PROVIDERS: PCP Internal Medicine; Visit Provider Internal Medicine | DX: I10 Essential (primary) hypertension (principal); E78.5 Hyperlipidemia, unspecified; E87.1 Hypo-osmolality and hyponatremia; K21.9 Gastro-esophageal reflux disease without esophagitis; N81.4 Uterovaginal prolapse, unspecified; C91.10 Chronic lymphocytic leukemia of B-cell type not having achieved remission; M48.062 Spinal stenosis, lumbar region with neurogenic claudication; E78.00 Pure hypercholesterolemia, unspecified; K44.9 Diaphragmatic hernia without obstruction or gangrene; Z79.899 Other long term (current) drug therapy | CPT/HCPCS: 96127; 99212 ==

== ENCOUNTER 2025-06-20 13:38 | Outpatient (AMB) | payer OTHER, SELFPAY ==
--- NOTE | 2025-06-20 13:39 | A.OFFPC_ITS ---
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 Required: No Accompanied by: Daughter Allergies amoxicillin (Amoxicillin) Allergy (Unknown, Verified 06/20/25 13:40) SORES IN MOUTH Medication List - Last Reconciled 06/20/25 by Jesus Martinez MD amlodipine 10 mg PO DAILY atorvastatin 10 mg PO BEDTIME back brace As directed [Bed Rails As directed] buspirone mg PO gabapentin 100 mg PO BID hydrochlorothiazide 12.5 mg PO DAILY imipramine HCl 50 mg PO DAILY incontinence pad, liner, disp (Prevail Panty Liner pads) As directed Knee brace As directed lidocaine 5% 1 patch topical DAILY 30 days lorazepam 0.5 mg PO BID PRN multivitamin 1 tab PO DAILY omeprazole 20 mg PO DAILY polyethylene glycol 3350 (Gavilax) 17 grams PO DAILY sertraline 200 mg (2 x 100 mg) PO DAILY Shower Chair As directed [Transport Wheelchair As directed] [ultra light rollator ultra light rollator with seat and brakes] walker (Ultra-Light Rollator misc) As directed Tobacco use date assessed: 03/18/25 Dental Screening Dental Screen Date: 03/18/25 HPI HPI Comments History of Present Illness Details History of Present Illness The patient is an 80 year old female presenting for a follow-up visit for medication management. She has a past medical history of hypertension, hypercholesterolemia, Chronic Obstructive Pulmonary Disease, GERD, cognitive decline, general sinusitis disorder, and lumbar compression fractures. She also has a history of uterovaginal prolapse, for which a colpocleisis was planned. Her daughter reports the patient has generalized anxiety disorder and becomes very worried about running out of her anxiety pills, which she takes daily. The patient's back pain has been slightly better with consistent Tylenol use, though some back pain persists. The patient's medications include amlodipine 10 mg and hydrochlorothiazide 12.5 mg for hypertension, and atorvastatin 10 mg for hypercholesterolemia, with a goal LDL of less than 130 and triglycerides of less than 150. Her psychotropic medications include sertraline 200 mg, lorazepam as needed, imipramine, and buspirone. She is also on gabapentin. Her last visit was in March 2025, and her last blood work was in July 2022. Health Maintenance The patient was advised to get blood work done to monitor her labs, as her last labs were in July 2022 and she is on multiple medications. A request for the lab work will be sent to the facility located near her home in [place]. Social History - The patient's family, including her da trinyhter and brother, are actively involved in her care and assist with picking up her medications. Results - Labs: The patient's last blood work wa s performed in July 2022. [facility] Medical History (Updated 06/20/25 @ 14:00 by Jesus Martinez MD) Anxiety Inguinal hernia Osteoarthritis Hypertension Pre-op exam Surgical History History of back surgery Family History Father No problems noted. Mother No problems noted. Social History Housing: House Alcohol intake: never Patient Tobacco Use Status: Never used Tobacco Tobacco use type: Cigarette e-Cigarette/Vaping Use: Never Used Second Hand Smoke Exposure: No service: No Current occupational status: retired Cognitive needs: Yes (walker) Hearing needs: No Vision needs: No Questionnaire Thrive Questionnaire Date Thrive assessed: 03/18/25 OLGA-7 AMB Questionnaire OLGA-7 Date OLGA - 7 assessed: 09/16/24 Source: Developed by Drs. Grey Ashby, Beth Womack, Chris Caraballo and colleagues, with an educational courtney from [employer] Review of Systems Narrative Review of Systems - Psychiatric: Reports significant anxiety and worry, particularly about running out of her anxiety medication. - Musculoskeletal: Reports persistent back pain, which has been slightly better with consistent Tylenol use. Physical exam (Primary Care) Tobacco/Smoking Status: Tobacco use Status Tobacco use date assessed 03/18/25 06/20/25 13:41 Patient Tobacco Use Status Never used Tobacco 06/20/25 13:41 Tobacco use type Cigarette 06/20/25 13:41 e-Cigarette/Vaping Use Never Used 06/20/25 13:41 Thrive Assessment: Date of Thrive Assessment Date Thrive assessed 03/18/25 06/20/25 13:41 Narrative Physical Exam Telehealth Telehealth Telehealth Platform: Telephone Location of provider rendering services: practice address Location of patient: address on file Patient Identification confirmed using: Name, : Yes Telehealth method: voice only Patient verbally consented to treatment: Yes Patient verbally consented to billing insurance company: Yes Patient informed of any privacy concerns related to visit: Yes Minutes spent on Phone/Video with Pt.: 25 Coding Level of Care Code Tele Est Pt Level 4 (07639) Diagnoses Hypertension I10 Hyperlipidemia E78.5 Gastroesophageal reflux disease without esophagitis K21.9 Esophagitis presence: without esophagitis Uterovaginal prolapse N81.4 CLL (chronic lymphocytic leukemia) C91.10 Spinal stenosis of lumbar region with neurogenic claudication M48.062 Neurogenic claudication status: with neurogenic claudication Generalized anxiety disorder F41.1 Assessment & Plan Assessment & Plan (1) Hypertension: Code(s): I10 - Essential (primary) hypertension Category: Medical Plan: Continue with blood pressure medication. Decrease salt intake and exercise patient on amlodipine 10 mg once a day hydrochlorothiazide 12.5 mg once a day (2) Hyperlipidemia: Code(s): E78.5 - Hyperlipidemia, unspecified Category: Medical Plan: Avoid fried foods, chicken skin, eggs, butter margarine, pastries and meat. Be it pork or beef they have a lot of cholesterol LDL goal of less than 130 and triglyceride of less than 150 on atorvastatin 10 mg once a day (3) GERD (gastroesophageal reflux disease): Code(s): K21.9 - Gastro-esophageal reflux disease without esophagitis Category: Medical Qualifiers: Esophagitis presence: without esophagitis Qualified Code(s): K21.9 - Gastro-esophageal reflux disease without esophagitis Plan: Avoid the foods that causes that usually spicy foods, tomato products, juices, coffee, soda and foods that your sensitive to. After eating do not lie down, allow 3-4 hours before in lie down. And keep the head of bed above 30 degrees to avoid the acid from going up. (4) Uterovaginal prolapse: Comment: colpocleisis done 01/2025 Code(s): N81.4 - Uterovaginal prolapse, unspecified Category: Medical Plan: Patient had a procedure done under urogynecology (5) CLL (chronic lymphocytic leukemia): Code(s): C91.10 - Chronic lymphocytic leukemia of B-cell type not having achieved remission Category: Medical Plan: Continuing to monitor patient was advised to get blood work done (6) Lumbar canal stenosis: Code(s): M48.061 - Spinal stenosis, lumbar region without neurogenic claudication Category: Medical Qualifiers: Neurogenic claudication status: with neurogenic claudication Qualified Code(s): M48.062 - Spinal stenosis, lumbar region with neurogenic claudication Plan: Continuing with gabapentin (7) Generalized anxiety disorder: Code(s): F41.1 - Generalized anxiety disorder Category: Medical Plan: Patient on sertraline 200 mg once a day lorazepam as needed buspirone. Plan Plan Patient was informed and verbally consented to the use of an ambient scribe for clinic note documentation during this visit. 1. Generalized Anxiety Disorder The patient and her daughter report she is experiencing significant anxiety about running out of her lorazepam, which her daughter states she takes daily. The prescription for lorazepam 60 tablets was resent to the [facility] pharmacy in [facility], having been sent multiple times previously, including on June 13. The patient was reassured that her medication would not be stopped. She will continue her regimen of sertraline 200 mg once a day, imipramine, and buspirone, with lorazepam as needed. 2. Hypertension The patient will continue her current antihypertensive regimen of amlodipine 10 mg once a day and hydrochlorothiazide 12.5 mg once a day. 3. Hypercholesterolemia The patient will continue treatment with atorvastatin 10 mg once a day to maintain an LDL goal of less than 130 and a triglyceride level of less than 150. Discussion Notes I spoke with the patient and her daughter regarding the refill for her lorazepam prescription. I reassured them that I had sent the script to the pharmacy on June 13 and that I resent it again during our call to ensure it would be available for pickup. I also emphasized the importance of completing follow-up blood work to monitor her health due to her multiple medications, and I confirmed that I would send the necessary order to a lab facility near her home. Patient Instructions - Your prescription for lorazepam has been sent to your pharmacy in [facility]. - Please have your family pick it up for you. - Continue taking all of your other medications as prescribed, including those for blood pressure, cholesterol, and anxiety. - Please go for blood work at the lab near your house. - We are sending them the order to check on your health. Medications: Refilled lorazepam 0.5 mg PO BID PRN 60 tabs 0RF anxiety lorazepam 0.5 mg PO BID PRN 60 tabs 0RF anxiety
--- OUTSIDE RECORDS SUMMARY | 2025-06-20 15:21 | XMS_ITS | Clinical Summary ---
Author Organization [facility] Address [address] [place] [address] Phone Care Team Providers Care Chemical Plant Worker Name Role Phone Michael Blanchard MD Primary Care Provider [phone] Allergies Active Allergy Reactions Criticality Noted Date [...] 1 (one) time each day. 5 Active Active Problems Problem Noted Date Diagnosed Date Anemia 12/01/2017 Anxiety and depression 12/01/2017 CLL (chronic lymphocytic leukemia) 12/01/2017 Weight loss 12/01/2017 Social History Tobacco [...] on file Sexual Orientation Not on file Last Filed Vital Signs [...] Care Team (Late st Contact Info) Description 01/23/2026 11:00 AM EDT Office Visit [facility] Hematology Oncology [address] [place] [phone] Galina Saenz MD [address] [place] [phone] Health Maintenance Due Date Last Done Comments [...] Procedure Name Priority Date/Time Associated Diagnosis Comments COMPREHENSIVE METABOLIC PANEL Routine 01/23/2025 11:36 AM EDT CLL (chronic lymphocytic leukemia) ([facility] V24, [facility] V28) from Last 3 Months or Most Recently Relevant to Health Maintenance Results * (ABNORMAL) Comprehensive metabolic panel (01/23/2025 11:36 AM EDT) Sodium 130(L) 133 - 145 mmol/L LAB CHEMISTRY METHOD 01/23/2025 1:45 PM EDT [facility] Potassium 3.9 3.5 - 5.5 mmol/L LAB CHEMISTRY METHOD 01/23/2025 1:45 PM EDT [facility] Chloride 95(L) 96 - 110 mmol/L LAB CHEMISTRY METHOD 01/23/2025 1:45 PM [facility] CO2 28 21 - 32 mmol/L LAB CHEMISTRY METHOD 01/23/2025 1:45 PM EDT [facility] Anion Gap 7 3 - 11 LAB CHEMISTRY METHOD 01/23/2025 1:45 PM [facility] Glucose 101(H) 70 - 100 mg/dL LAB CHEMISTRY METHOD 01/23/2025 1:45 PM [facility] BUN 11 5 - 25 mg/dL LAB CHEMISTRY METHOD 01/23/2025 1:45 PM [facility] Creatinine 0.69 0.50 - 1.10 mg/dL LAB CHEMISTRY METHOD 01/23/2025 1:45 PM [facility] eGFR 88 >=60 mL/min/1. 73m2 LAB CHEMISTRY METHOD 01/23/2025 1:45 PM [facility] Comment:Calculation based on the Chronic Kidney Disease Epidemiology Collaboration (CKD-EPI) equation refit without adjustment for race. BUN/Creatinine Ratio 15.9 LAB CHEMISTRY METHOD 01/23/2025 1:45 PM [facility] Calcium 8.8 8.5 - 10.5 mg/dL LAB CHEMISTRY METHOD 01/23/2025 1:45 PM [facility] AST (SGOT) 17 10 - 42 unit/L LAB CHEMISTRY METHOD 01/23/2025 1:45 PM [facility] ALT (SGPT) 22 10 - 60 unit/L LAB CHEMISTRY METHOD 01/23/2025 1:45 PM [facility] Alkaline Phosphatase 159(H) 42 - 121 unit/L LAB CHEMISTRY METHOD 01/23/2025 1:45 PM [facility] Total Protein 6.3 6.0 - 8.0 g/dL LAB CHEMISTRY METHOD 01/23/2025 1:45 PM [facility] Albumin 3.7 3.2 - 5.0 g/dL LAB CHEMISTRY METHOD 01/23/2025 1:45 PM [facility] Total Bilirubin 0.5 0.0 - 1.4 mg/dL LAB CHEMISTRY METHOD 01/23/2025 1:45 PM EDT [facility] Blood Venous blood specimen / Unknown Venipuncture / Unknown 01/23/2025 11:36 AM EDT 01/23/2025 1:26 PM EDT Galina Saenz MD LAB BLOOD ORDERABLE S Final Result [facility] [address] [place] [address], from Last 3 Months or Most Recently Relevant to Health Maintenance Insurance [facility] Member Subscriber Plan / Payer (Ef fective 2022-Present) Name:LEDA LONG Relation to Subscriber:Self Name:Geoffrey Long Payer ID:[id number] Group ID:[id number] Type:Not on file Address: [place] [address] [address] [id number] Advance Directives Documents on File Type Date Recorded Patient Retail Services Professional Expl anation Health Care Decision (hx) 04/07/2021 AD GRAVES DIRECTIVE Health Care Decision (hx) 04/07/2021 AD GRAVES DIRECTIVE Health Care Decision (hx) 04/07/2021 AD GRAVES DIRECTIVE Care Teams Chemical Plant Worker Relationship Specialty Start Date End Date Michael Blanchard MD [address] [place] [address] PCP - General Internal Medicine 12/19/18
--- OUTSIDE RECORDS SUMMARY | 2025-06-20 15:21 | XMS_ITS | Data Portability ---
Author Organization [facility] Address [address] [place] [address] Care Team Providers Care Senior Accountant Cpa Name Role Phone HIM VANNESSA OTHER SUSANACINDY SHARMAINE OTHER SACHIN ARTIS OTHER Assessment Encounter Date Assessment Date Assessment LastModified by Organization Details LastModified Time 09/03/2024 09/03/2024 I provided real -time medical direction via phone for this encounter, and was available for additional phone based assistance as needed. I have reviewed and agree with the Assessment and Plan as documented by the Bank Compliance Officer. We discussed the diagnostic uncertainty of home [...] 911- verbalized understanding of instructions to me [email or web address] Not available 09/03/2024 18:24:36 09/05/2024 09/05/2024 Impression: [...] of any new or worsening serious symptoms [email or web address] Not available 09/05/2024 15:19:48 Plan of Treatment Reminders Order Date Submit Date Provider Last Modified By Organization Details Last Modified Time Details Appointments None recorded. Lab BMP, serum or plasma [address], [phone] 17:04:03 hemoglobin + hematocrit, blood [address], [address] 17:04:25 BMP, serum or plasma [address], [address] 17:27:20 culture, urine 2024 025 [place] [facility] (Centralized Electronic Ordering - All Locations), Patient Can Go To The Location Of Their Choice, [id number] 06:07:47 urinalysis, dipstick 2024 025 [facility], [address] [place] [address], [place], [address] 08:17:32 Referral None recorded. Procedures sasha shields (PROC) 2024 025 [email or web address] Not available 18:30:24 Surgeries None recorded. Imaging None recorded. Medication Orders None recorded. Patient TargetsNo targets recorded. Patient InstructionsNo instructions recorded. Reason for Referral None Reported. Results Created Date Observation Date Name Description Value Unit Range Abnormal Flag Note LastModifiedBy Organization Detail LastModifiedTime 09/04/1909/05/2024 URINE CULTU REOSVALDO NE urine culture, routine Final report Not Available [facility] ([facility]) [address] [place], [address], 09/05/2024 06:07:46 09/04/1909/05/2024 URINE CULTU REOSVALDO result 1 No growth Not Available [facility] ([facility]) [address] [facility], [place], [address], 09/05/2024 06:07:46 Result Notes None recorded. Medical Equipment None Reported. Allergies Allergen ID Allergen Name Allergen Category Reaction Reaction Severity Criticality Documentation Date Start Date Code Code System Note Provider Name and Address Organization Details Recorded Time 23859 amoxicill in medicatio n Not available Not [...] temperature Respiratory rate Heart rate Oxygen saturation Systolic And Diastolic Provider Name and Address Organization Details Last Updated DateTime 4 98 [degF] 18 /min 99 /min 97 % 198/89 mm[Hg] Not Available [employer] 4 18:39:47 Date Recorded Oxygen saturation Body temperature Heart rate Respiratory rate Systolic And Diastolic Provider Name and Address Organization Details Last Updated DateTime 5 99 % 98.5 [degF] 80 /min 18 /min 158/71 mm[Hg] Not Available [employer] 5 15:23:02 Date Recorded Body temperature Respiratory rate Heart rate Oxygen saturation Systolic And Diastolic Provider Name and Address Organization Details Last Updated DateTime 5 98.3 [degF] 16 /min 62 /min 95 % 128/58 mm[Hg] Not Available [employer] 5 14:59:25 Social History None recorded. Functional Status None recorded. Mental Status None recorded. Family History Nothing Reported. Medical History No medical history recorded. Gynecological HistoryNo gynecological history recorded. Obstetrics History GPAL:G 0 P 0 0 0 0 Past Encounters Encounter ID Performer Location Encounter Start Date Encounter Closed Date Diagnosis/Indication Diagnosis SNOMED-CT Code Diagnosis ICD10 Code Diagnosis IMO Codes Diagnosis Note [id number] SAPPHIRE HAWTHORNE MD [facility] - [facility] [address] [place] [phone] 08/05/2023 18:39:45 08/06/2023 13:35:13 Dizziness [id number] R42 Evaluation in the field was performed by my hardboard grinder colleague, as noted above, I provided real-time [...] to sent pt in the ED at [facility] for further management of her dizziness , possible brain MRI and manage her BP . Primary care, consider__ _ Dispositio n: [facility] ED. expect called. [id number] Katerine Urena MD Main - [facility] [address] [place] [phone] 09/03/2024 15:22:59 09/03/2024 19:09:53 Urinary symptoms 543632171 R39.9 spoke with patient and her daughter- [...] to CRC to reach out to healthcare risk control consultant-re garding she needs to see her urologist and pcp TRICIA if they could assist with that pls. Her daughter TEJAS will also call PCP and urology tomorrow. Can CRC pls call to check on patient tomorrow- has never had a baez/ if pcp cannot see within in 48 hours will need a revisit and repeat labs. [id number] Derek Velasquez MD Main - [facility] [address] [place] [phone] 09/05/2024 14:59:22 09/05/2024 17:44:36 Hyponatremia 07880615 E87.1 Health Concerns Section Related Observation LastModified by Organization Detai ls LastModified Time None Recorded Concern Status LastModified by Organization Details LastModified Time None Recorded Advance Directives Directive None Recorded Payers Insurance Date Sequence Insurance Name Policy Number Policy Noe Covered Member ID Noe Member ID Guarantor Name 09/03/2024 1 [facility] - DOS ON OR AFTER 2022 - DUAL ELIGIBLE - FDC OPTIONS AND ONE CARE (MEDICARE REPLACEMENT/ADV ANTAGE - HMO) Geoffrey Long [id number] Geoffrey Long Notes Date Note Type Note Provider Name and Address Organization Details Recorded Time 08/05/2023 text/html ROS as noted in the HPI CRC Nurse Triage Notes (Dulce Arriaza): Chief [...] ...................... ...................... ...................... ...................... ...................... ...................... ......... Bank Compliance Officer Note From Jessica Samuels: Community Bank Compliance Officer Graeme Samuels CCA1 dispatched to a red for a [...] or arm drift. She was not anticoagulated. [facility] consulted; pt was informed that she needed to call 911 and R/O cerebellar CVA in the ED. Pt and family agreed, 911 was called, Landy SMALL arrived and transported her to [facility] ED. ...................... ...................... ...................... ...................... ...................... ...................... ......... Disposition: Caterina HAWTHORNE MD [address] [facility],[address], [place], [phone], [facility] 08/05/2023 23:15:46 09/03/2024 text/html ROS as noted in the [facility] CRC Nurse Triage Notes (Jenifer Murillo): Reason [...] Complaints: Urinary SymptomsPMH: Hypertension, HyperlipidemiaPMH Reviewed at 09/03/2024:48Allergies Reviewed at 09/03/2024:48Comments: Unable to void today. Unable to urinate at the lab today. Last void at 7am. Patient is not experiencing any pain currently. Patient has been increasing fluid intake today. Has not been recently treated for a UTI. Denies fever/chills. Education provided on the response time and the member was advised to monitor reported s/s and seek emergency treatment if needed. Bank Compliance Officer Organization Information for Lucas Yusuf Legal Name: [employer]. Address: [address] [place] [address], Home Health Lvn: Denis Ochoa MD CLIA No.: [id number] Bank Compliance Officer POC Test Results from [facility] iSTAT [...] ...................... ...................... ...................... ...................... ...................... ...................... ......... Bank Compliance Officer Note From Lucas Yusuf: SC12 dispatched to the address listed above for the report of a female alliance party with urinary retention. Arrival on scene, [...] UTI's. Patient vital signs obtained as noted. [facility] was consulted, provided order for lab draw [...] obtained followed by urine dipstick as noted. [facility] consulted again and discussed red flags with both patient and daughter, advised to follow up with PCP as soon as they can. Daughter was instructed on how to drain Baez catheter bag as well. SC12 clear. [facility] Lab Orders: BMP, serum or plasma: Performed culture, urine: Performed urinalysis, dipstick: Performed ...................... ...................... ...................... ...................... ...................... ...................... ......... [facility] Consulted: Katerine Urena ...................... ...................... ...................... ...................... ...................... ...................... ......... Disposition: Fulfilled SEGMD: As above-patient has history of HTN, chronic lymphocytic leukemia, and chronic low back pain according to her daughter Tejas-please note the phone number in the [facility] she referral is her daughter's phone number and she and the patient patient asked requests the daughter to be called with any follow-up as she takes care of all her mother's medical needs. Patient has been drinking mostly multiple cups of water occasionally mixed with apple juice Katerine Urena MD [address] [facility],[address], [place], [phone], [employer] 09/03/2024 18:30:40 09/05/2024 text/html ROS as noted in the [facility] CRC Nurse Triage Notes (Alicia Draper): Chief Complaints: Abnormal Lab Value PMH: Hypertension, Hyperlipidemia PMH Reviewed at 09/05/2024 - 10:32 Allergies Reviewed at 09/05/2024 - 10:32 Comments: 09/03/24- pat was in acute urinary retention ( 1L)- we left baez in-and was anemic: H & H 9.7/ but has hx CLL- also hyponatremic ( NA 127 with nl BUN/cr). Can you pls reach out to healthcare risk control consultant- she needs to see her urologist and [...] new visit has been placed for 09/05 Bank Compliance Officer Organization Information for Slowinski, Kieran - [employer] Legal Name: [employer]. Address: [address] [place] [address], Home Health Lvn: Denis VAN No.: [id number] Bank Compliance Officer POC Test Results from Kieran Wilkins iSTAT Chem8+ (15:11:57) Na: 129 mEq/L K: 3.9 mEq/L Cl: 94 mEq/L iCa: 1.18 mmol/L TCO2: 25 mmol/L Glu: 113 mg/dL BUN: 13 mg/dL Crea: 0.9 mg/dL Hct: 29 % Hb: 9.9 g/dL A mmol/L Attachments uploaded as part of this test result can be found under Documents section. ...................... ...................... ...................... ...................... ...................... ...................... ......... Bank Compliance Officer Note From Kieran Wilkins: Dispatched to above [...] Patient and family have no new complaints. [facility] contacted, spoke with Dr. Velasquez advised of complaints and follow up. [facility] ordered Chem 8 be checked. Lab draw preformed, Chem 8 checked, results uploaded. Showed improvement from last test. [facility] recommends drinking Gatorade/ Pedialyte, follow up with urology and PCP as already planned and home monitoring of symptoms. Patient and family agree with this plan. Patient and family have no additional questions or concerns at this time. SC8 clear. EOR. [facility] Lab Orders: BMP, serum or plasma: Performed hemoglobin + hematocrit, blood: Performed ...................... ...................... ...................... ...................... ...................... ...................... ......... [facility] Consulted: Derek Velasquez ...................... ...................... ...................... ...................... ...................... ...................... ......... Disposition: Fulfilled Derek Velasquez MD [address] [facility],[address], [place], [address], [employer] 09/05/2024 15:40:35 OBGyn Episode No OBEpisode recorded.
== END 2025-06-20 14:38 | disposition home or self-care (01) ==
LOC: HO.HMCH 13:38
PROVIDERS: PCP Internal Medicine; Visit Provider Internal Medicine
DX: C91.10 Chronic lymphocytic leukemia of B-cell type not having achieved remission (principal); I10 Essential (primary) hypertension; E78.5 Hyperlipidemia, unspecified; K21.9 Gastro-esophageal reflux disease without esophagitis; N81.4 Uterovaginal prolapse, unspecified; M48.062 Spinal stenosis, lumbar region with neurogenic claudication